=== PATIENT | male | born 1960 | race Two or more races ===

== ENCOUNTER 2019-01-14 08:05 | Inpatient (IN) | payer OTHER ==
[2019-01-14] MEDS ORDERED: ACETAMINOPHEN 325 MG TAB PO ONE (08:27)
[2019-01-14] MEDS ORDERED: NS 1,000 ML IV ONE (08:28)
[2019-01-14] MEDS ORDERED: ONDANSETRON 4 MG/2 ML VIAL IVP ONE (08:36)
[2019-01-14 08:37] LABS: PLATELET COUNT 278 10^3/uL (150-400)
--- NOTE | 2019-01-14 08:40 | EDPHY ---
H & P Stated Complaint: high blood sugar, rapid heart rate, fevers, feels weak and shakey Time Seen by Provider: 01/14/19 08:26 HPI/ROS: CHIEF COMPLAINT: Fever, shortness of breath HISTORY OF PRESENT ILLNESS: 58-year-old male with diabetes presents with fever and shortness of breath. Onset of left chest pain 10 days ago, associated with intermittent fever. Gradually increasing shortness of breath. Now short of breath at rest. The left chest pain is severe, constant, 10/10 and increases with deep inspiration. No cough. Recently added insulin to DM regimen. REVIEW OF SYSTEMS: complete 10 point ROS reviewed and is negative except for the noted elements in the HPI - Personal History Current Tetanus/Diphtheria Vaccine: Unsure Current Tetanus Diphtheria and Acellular Pertussis (TDAP): Unsure - Medical/Surgical History Hx Asthma: No Hx Chronic Respiratory Disease: No Hx Diabetes: Yes Hx Cardiac Disease: No Hx Renal Disease: No Hx Cirrhosis: No Hx Alcoholism: No Hx HIV/AIDS: No Hx Splenectomy or Spleen Trauma: No - Social History Smoking Status: Never smoked Alcohol Use: Sober Drug Use: None - Physical Exam Exam: General Appearance: Alert, pleasant Eyes: Pupils equal and round, no conjunctival pallor or injection ENT, Mouth: Mucous membranes moist Neck: Normal inspection Respiratory: Tachypneic, rales left lower lung field anteriorly Cardiovascular: Regular tachycardia Gastrointestinal: Abdomen is soft and nontender Neurological: A&O, nonfocal exam Skin: Warm and dry, no rash Extremities: Nontender, no pedal edema Psychiatric: Mood and affect normal Constitutional: Initial Vital Signs Temperature (C) 38.9 C H 01/14/19 08:09 Heart Rate 106 H 01/14/19 08:09 Respiratory Rate 18 01/14/19 08:09 Blood Pressure 134/71 H 01/14/19 08:09 O2 Sat (%) 90 L 01/14/19 08:09 O2 Delivery Mode Nasal Cannula O2 (L/minute) 3 Allergies/Adverse Reactions: No Known Allergies Allergy (Verified 01/14/19 09:52) Home Medications: Medication Instructions Recorded Insulin Glargine [Lantus] 10 unit SC BID 01/14/19 Lisinopril/Hydrochlorothiazide 1 each PO DAILY 01/14/19 [Zestoretic 20-25 mg Tablet] Simvastatin [Zocor] 20 mg PO HS 01/14/19 glipiZIDE [Glucotrol] 5 mg PO BID 01/14/19 metFORMIN HCL [Glucophage 1000 mg] 1,000 mg PO BIDMEAL 01/14/19 Medical Decision Making - Diagnostics EKG Interpretation: EKG interpreted by me reveals normal sinus rhythm, rate 94, T-wave flattening in the inferior leads. Interpretation: Borderline EKG Imaging Results: CXR: LLL infiltrate Imaging: I viewed and interpreted images myself ED Course/Re-evaluation: This patient presents with fever, hypoxia and left lower chest pain. Clinical presentation consistent with pneumonia. Meets SIRS criteria. Initial lactate is normal. IV normal saline 1 L and Tylenol 650 mg orally given. Morphine 4 mg IV given for pain. Chest x-ray reveals a left lower lobe infiltrate. Blood cultures were drawn and Rocephin and Zithromax IV given. Ddimer slightly elevated, considered PE, pneumonia much more likely, consider CTA as inpt. The hospitalist service was consulted for admission. 0945: feels and looks much better after fever reduction and pain control. BP 124/76, HR 80, RR 16, O2 sat 93% on 3l NC. Differential Diagnosis: Differential diagnosis includes though it is not limited to pneumonia, pneumothorax, pulmonary embolism, aortic dissection, pericarditis, acute coronary syndrome. - Data Points Laboratory Results: Laboratory Results 01/14/19 08:20 01/14/19 08:20 Medications Given: Acetaminophen (Tylenol) 650 mg PO Q4HRS PRN PRN Reason: Pain, Mild/Fever, Can Take PO Stop: 07/13/19 09:49 Last Admin: 01/14/19 13:21 Dose: 650 mg Hydrocodone Bitart/Acetaminophen ([place] 5/325) 1 - 2 tab PO Q4HRS PRN PRN Reason: Pain, Moderate Able to Take PO Stop: 01/24/19 17:43 Last Admin: 01/15/19 19:43 Dose: 2 tab Benzonatate (Tessalon Pearles) 200 mg PO TID PRN PRN Reason: Cough, Mild Stop: 07/13/19 13:56 Last Admin: 01/15/19 13:03 Dose: 200 mg Enoxaparin Sodium (Lovenox) 40 mg SC DAILY REJI Stop: 07/14/19 08:59 Last Admin: 01/15/19 08:41 Dose: 40 mg Guaifenesin (Mucinex) 600 mg PO BID [facility] Stop: 07/13/19 20:59 Last Admin: 01/15/19 21:13 Dose: 600 mg Cefepime HCl 2 gm/ Sodium (Chloride) 100 mls @ 200 mls/hr IV Q8HRS [facility] PRN Reason: Protocol Stop: 02/14/19 13:59 Last Admin: 01/15/19 21:13 Dose: 100 mls Vancomycin/Sodium Chloride (Vancomycin 1 Gm (Premix)) 250 mls @ 250 mls/hr IV Q12H [facility] Stop: 02/14/19 13:59 Last Admin: 01/15/19 16:12 Dose: 250 mls Insulin Glargine (Lantus Syringe) 5 units SC BID [facility] Stop: 07/14/19 20:59 Last Admin: 01/15/19 21:13 Dose: 5 units Insulin Human Lispro (Humalog Lispro) 0 unit SC TIDMEAL [facility] PRN Reason: Protocol Stop: 07/13/19 17:59 Last Admin: 01/15/19 18:09 Dose: Not Given Ketorolac Tromethamine (Toradol) 30 mg IVP Q6HRS PRN PRN Reason: Pain, Breakthrough Stop: 01/19/19 17:59 Last Admin: 01/15/19 16:11 Dose: 30 mg Senna/Docusate Sodium (Senokot-S) 1 - 2 tab PO BID [facility] PRN Reason: Protocol Stop: 07/14/19 08:59 Last Admin: 01/15/19 21:13 Dose: 1 tab Discontinued Medications Acetaminophen (Tylenol) 650 mg PO EDNOW ONE Stop: 01/14/19 08:28 Last Admin: 01/14/19 08:39 Dose: 650 mg Azithromycin (Zithromax) 500 mg PO ONCE ONE Stop: 01/14/19 09:46 Last Admin: 01/14/19 09:44 Dose: 500 mg Azithromycin (Zithromax) 250 mg PO DAILY [facility] PRN Reason: Protocol Stop: 02/14/19 08:59 Last Admin: 01/15/19 08:42 Dose: 250 mg Sodium Chloride (Ns) 1,000 mls @ 0 mls/hr IV ONCE ONE; Wide Open PRN Reason: Protocol Stop: 01/14/19 08:29 Last Admin: 01/14/19 08:35 Dose: 1,000 mls Ceftriaxone Sodium/Dextrose (Rocephin 1 Gm (Premix)) 50 mls @ 100 mls/hr IV EDNOW ONE PRN Reason: Protocol Stop: 01/14/19 09:39 Last Admin: 01/14/19 09:22 Dose: 50 mls Ceftriaxone Sodium/Dextrose (Rocephin 1 Gm (Premix)) 50 mls @ 100 mls/hr IV DAILY REJI PRN Reason: Protocol Stop: 02/14/19 08:59 Last Admin: 01/15/19 09:48 Dose: 50 mls Sodium Chloride (Ns) 1,000 mls @ 75 mls/hr IV CONT REJI Stop: 01/14/19 23:34 Last Admin: 01/14/19 10:53 Dose: 1,000 mls Ketorolac Tromethamine (Toradol) 15 mg IVP Q6HRS PRN PRN Reason: Pain, Breakthrough Stop: 01/19/19 17:59 Last Admin: 01/14/19 13:48 Dose: 15 mg Morphine Sulfate (Morphine) 4 mg IVP EDNOW ONE Stop: 01/14/19 08:37 Last Admin: 01/14/19 08:40 Dose: 4 mg Ondansetron HCl (Zofran) 4 mg IVP EDNOW ONE Stop: 01/14/19 08:37 Last Admin: 01/14/19 08:40 Dose: 4 mg Potassium Chloride (Klor-Con) 20 meq PO ONCE ONE Stop: 01/14/19 14:21 Last Admin: 01/14/19 16:19 Dose: 20 meq Potassium Chloride (Klor-Con) 40 meq PO ONCE ONE Stop: 01/15/19 09:54 Last Admin: 01/15/19 12:05 Dose: 40 meq Departure - Departure Disposition: [facility] Acute Clinical Impression: Pneumonia Qualifiers: Pneumonia type: due to unspecified organism Laterality: left Lung location: lower lobe of lung Qualified Code(s): J18.1 - Lobar pneumonia, unspecified organism Condition: Fair
[2019-01-14] MEDS ORDERED: AZITHROMYCIN IV 500 MG in NS 250 ML IV ONE (09:10)
[2019-01-14] MEDS ORDERED: AZITHROMYCIN 250 MG TAB PO ONE (09:45)
[2019-01-14] MEDS ORDERED: ONDANSETRON 4 MG/2 ML VIAL IVP PRN (09:50)
[2019-01-14] MEDS ORDERED: ONDANSETRON DISINTEGRATING 4 MG TAB PO PRN (09:50)
--- NOTE | 2019-01-14 10:06 | CPEKG ---
Test Reason : OPEN Blood Pressure : / mmHG Vent. Rate : 094 BPM Atrial Rate : 094 BPM P-R Int : 200 ms QRS Dur : 095 ms QT Int : 328 ms P-R-T Axes : 055 003 007 degrees QTc Int : 411 ms Sinus rhythm Borderline prolonged IA interval Borderline T wave abnormalities Confirmed by Vero Guillen ([id number]) on 01/14/2019 10:06:01 AM Referred By: VERO GUILLEN Confirmed By:Vero Guillen
[2019-01-14] MEDS ORDERED: NS 1,000 ML IV SCH (10:15)
[2019-01-14] MEDS: ACETAMINOPHEN 325 MG TAB PO PRN (13:21)
[2019-01-14] MEDS ORDERED: KETOROLAC 15 MG/1 ML SDV IVP PRN (13:42)
[2019-01-14] MEDS ORDERED: D50W 25 GM/50 ML SYR IVP PRN (13:58)
[2019-01-14] MEDS ORDERED: POTASSIUM CL 20 MEQ TAB PO ONE (14:20)
[2019-01-14] MEDS ORDERED: IOPAMIDOL (ISOVUE 370) 100 ML BTL IV ONE (14:34)
--- NOTE | 2019-01-14 16:05 | GHP ---
[f rep st] HISTORY AND PHYSICAL DATE OF ADMISSION: 01/14/2019 CHIEF COMPLAINT: Chest pain, fevers. HISTORY OF PRESENT ILLNESS: A 58-year-old male with diabetes, hyperlipidemia and hypertension brought in by family. He is Bangladeshi speaking. His son is bedside interpreting. The patient does understand quite a bit of Nepali. Reports a productive cough for the past week, brown sputum, fevers, chills, and sweats. He presented to Urgent Care earlier this morning with severe left- sided chest pain, difficulty breathing. Complains of left-sided chest pain that is 10/10, worse with deep breath. Next, recently saw PCP, who restarted glargine twice a day. Denies ill contacts. Complaining of headache, decreased oral intake this morning. No nausea, vomiting, or diarrhea. No dysuria. REVIEW OF SYSTEMS: I completed a 10-point review of systems, negative except as noted in HPI. PAST MEDICAL HISTORY: Hyperlipidemia, hypertension, diabetes. Recent A1c 13. PAST SURGICAL HISTORY: Inguinal hernia. FAMILY HISTORY: No strokes or heart attacks. SOCIAL HISTORY: Lives in [place] with his . Works for [employer]. No alcohol , tobacco, or illicits. HOME MEDICATIONS: Lisinopril/hydrochlorothiazide 20/25 mg, metformin 1000 mg twice daily, glipizide 5 mg twice daily, Zocor 20 at bedtime, glargine 10 units subcu twice daily. ALLERGIES: None. PHYSICAL EXAMINATION: VITAL SIGNS: Temperature 38.9, heart rate in the 90s, respirations 46, 83% on 8 L nasal cannula, blood pressure 146/90. GENERAL: He is ill-appearing, diaphoretic and uncomfortable. HEENT: PERRLA. Dry mucous membranes. CV: Regular rate and rhythm. Mildly reproductive left-sided chest pain, splinting using accessory muscles. No lower extremity edema. LUNGS: Decreased breath sounds, left base; crackles, right base. ABDOMEN: Soft, nontender, nondistended. MUSCULOSKELETAL: 5/5 upper and lower extremity strength. NEURO: 2 through 12 intact. PSYCH: Alert and oriented x3. LABORATORY DATA: WBC 13, hemoglobin 12, hematocrit 37, platelets 278. Dimer is 0.74. Lactate is 1.3. Sodium 133, potassium 3.4, chloride 98, carbon dioxide 25, glucose 199, repeat 117, total bilirubin 2, AST 16, ALT 23, lipase 26, procalcitonin is 0.23. Chest x-ray is personally reviewed by me. Positive spine sign. Left lower lobe infiltrate. EKG personally reviewed. Normal sinus rhythm, first-degree heart block, LVH, T- wave inversions 5, 6. ASSESSMENT/PLAN: 1. Sepsis with elevated white count, fever, pneumonia. Treat for community- acquired pneumonia. Blood cultures pending, negative respiratory PCR. 2. Community-acquired pneumonia: Azithromycin, ceftriaxone, Tessalon Perles, guaifenesin for cough. 3. Acute hypoxemic respiratory failure: Splinting, using accessory muscles. Suspect secondary to pleuritic pain associated with pneumonia. However, given high oxygen needs and mildly elevated D-dimer, we will check a CTA. 4. Hyperlipidemia: Statin. 5. Diabetes, type 2. A1c 13. Hold orals with decreased oral intake. Sliding scale for now. We will re add glargine when eating more. 6. Hypertension: Hold hypertensive with sepsis. 7. Diet: Diabetic. 8. Deep venous thrombosis prophylaxis: Lovenox. 9. Hypovolemic hyponatremia: Secondary to decreased oral intake. Gentle intravenous fluids. 10. 11. Hypokalemia due to decreased oral intake: Replete. DISPOSITION: Inpatient admission given acute sepsis warranting IV fluids, antibiotics. /[id number]/MODL MTDRehan
[2019-01-14] MEDS: HYDROCODONE/APAP 5/325 TAB PO PRN ×3 (18:01→22:34)
[2019-01-14] MEDS: INSULIN LISPRO 100 UNIT/ML SC SCH (18:23)
[2019-01-14] MEDS: guaiFENesin 600 MG TAB.ER PO SCH (19:47)
[2019-01-14] MEDS: KETOROLAC 15 MG/1 ML SDV IVP PRN (19:47)
[2019-01-14] MEDS ORDERED: LORazepam 0.5 MG TAB PO PRN (20:28)
[2019-01-15] MEDS: KETOROLAC 15 MG/1 ML SDV IVP PRN ×3 (02:19→16:11)
[2019-01-15] MEDS: HYDROCODONE/APAP 5/325 TAB PO PRN ×3 (05:33→19:43)
[2019-01-15] MEDS: INSULIN LISPRO 100 UNIT/ML SC SCH ×3 (08:02→18:09)
[2019-01-15] MEDS ORDERED: BISACODYL 10 MG SUPP PR PRN (08:22)
[2019-01-15] MEDS ORDERED: LACTULOSE 20 GM/30 ML UDCUP PO PRN (08:22)
[2019-01-15] MEDS ORDERED: MAGNESIUM HYDROXIDE 30 ML UDCUP PO PRN (08:22)
[2019-01-15] MEDS ORDERED: POLYETHYLENE GLYCOL 3350 17 GM PKT PO PRN (08:22)
--- NOTE | 2019-01-15 08:31 | HOSPPROG ---
Hospitalist Progress Note Assessment/Plan: #CAP with parapneumonic effusion (personally-reviewed CT and no loculations) -recurrent fever this afternoon. Broaden abx, will obtain thoracentesis for diagnostic purposes. Add TB studies (been in [place] since 1995, from [facility]) -blood/sputum cultures pending #Sepsis: due to above #Acute hypoxemic resp failure: from PNA, splinting. Down to 4L -BNP minimally elevated #Pleuritic CP: due to PNA/effuision. Negative trop. Toradol, [place] helpful #DM2: not eating much, hold orals. SSI, add glargine when eating more #HTN: holding BP meds #Hypokalemia: repleted #Diet: DM #DVT ppx: Lovenox #Disp: inpatient admission for ongoing fever, IV abx and thoracentesis Subjective: pain better-controlled this morning Objective: Vital Signs Temp Pulse Resp BP Pulse Ox 36.8 C 73 16 120/68 93 01/15/19 07:53 01/15/19 07:53 01/15/19 07:53 01/15/19 07:53 01/15/19 07:53 Laboratory Results 01/15/19 05:45 01/14/19 01/15/19 01/16/19 05:59 05:59 05:59 Intake Total 1939 Balance 1939 - Time Spent With Patient Time Spent with Patient: greater than 35 minutes Time Spent with Patient: Greater than 35 minutes spent on this patients care, greater than 50% of time spent counseling, educating, and coordinating care regarding the above mentioned plan. - Physical Exam Constitutional: no apparent distress Eyes: PERRL Ears, Nose, Mouth, Throat: moist mucous membranes Cardiovascular: regular rate and rhythym, other (reproducible left chest pain), No edema Respiratory: no respiratory distress, other (decreased BS left base, right base with mild crackles) Gastrointestinal: normoactive bowel sounds Genitourinary: no bladder fullness Skin: warm ICD10 Worksheet Patient Problems: Problems Problem Status Onset Pneumonia Acute
[2019-01-15] MEDS: SENNOSIDES/DOCUSATE SODIUM TAB PO SCH ×2 (08:41→21:13)
[2019-01-15] MEDS: ENOXAPARIN 40 MG/0.4 ML SYR SC SCH (08:41)
[2019-01-15] MEDS: guaiFENesin 600 MG TAB.ER PO SCH ×2 (08:42→21:13)
[2019-01-15] MEDS ORDERED: AZITHROMYCIN 250 MG TAB PO SCH (09:00)
[2019-01-15] MEDS ORDERED: POTASSIUM CL 20 MEQ TAB PO ONE (09:53)
[2019-01-15] MEDS: BENZONATATE 100 MG CAP PO PRN (13:03)
[2019-01-15] MEDS: CEFEPIME HCL 2 GM in NS 100 ML IV SCH ×2 (14:12→21:13)
--- NOTE | 2019-01-15 14:27 | ASMTCMCOM ---
CM Note CM Note Notes: CM spoke with pt and family in the room. Pt admitted for Community Acquired Pneumonia/sepsis, blood cultures pending, and lives independently with his . PT is ordered and pending. Pt likely to d/c independently. Pt speaks Slovenian and son speaks Thai. CM to follow. D/C Plan: Likely independent Date Signed: 01/15/2019 02:26 PM Electronically Signed By:Lena Mcneil
[2019-01-15 14:34] LABS: INR 1.31 (0.83-1.16); PROTIME(PATIENT) 15.7 SEC (12.0-15.0)
--- NOTE | 2019-01-15 14:38 | PDMN ---
Medical Necessity Medical necessity: Change to inpt as of 01/15/19 @ 12:35, meets inpt criteria per MD order and M-282, Pneumonia, A-2 days, upgraded to inpt for persistent AHRF/ SOB beyond 24 hr OBS window still requiring 4-8L O2 via oxymask, fwbrile today at 100.9 and w/persistent pleuritic CP due to PNA/parapneumonic effusion. 58 y/ o w/diabetes, HTN, and HLD initially admitted w/sepsis in setting of community acquired PNA. IV ABX's, IV Toradol for pain. Anticipate>2MN for ongoing eval/ treatment of above.
[2019-01-15] MEDS ORDERED: LIDOCAINE 1% 300 MG/30 ML SDV ONE (14:54)
[2019-01-15] MEDS: VANCOMYCIN HCL/NORMAL SALINE 250 ML IV SCH (16:12)
[2019-01-15] MEDS ORDERED: INSULIN GLARGINE 100 UNITS/ML UNIT SC SCH (21:00)
[2019-01-16] MEDS: VANCOMYCIN HCL/NORMAL SALINE 250 ML IV SCH (02:06)
[2019-01-16] MEDS: ACETAMINOPHEN 325 MG TAB PO PRN (04:58)
[2019-01-16] MEDS: CEFEPIME HCL 2 GM in NS 100 ML IV SCH ×3 (05:01→23:05)
[2019-01-16 05:15] LABS: PLATELET COUNT 235 10^3/uL (150-400)
[2019-01-16] MEDS: HYDROCODONE/APAP 5/325 TAB PO PRN ×3 (08:01→23:22)
[2019-01-16] MEDS: ENOXAPARIN 40 MG/0.4 ML SYR SC SCH (08:01)
[2019-01-16] MEDS: INSULIN LISPRO 100 UNIT/ML SC SCH ×4 (08:01→21:25)
[2019-01-16] MEDS: guaiFENesin 600 MG TAB.ER PO SCH ×2 (08:02→21:25)
[2019-01-16] MEDS: SENNOSIDES/DOCUSATE SODIUM TAB PO SCH ×2 (08:02→21:25)
[2019-01-16] MEDS ORDERED: NS 1,000 ML IV SCH (08:15)
[2019-01-16] MEDS: INSULIN GLARGINE 100 UNITS/ML UNIT SC SCH ×2 (10:17→21:46)
[2019-01-16] MEDS: metFORMIN HCL 500 MG TAB PO SCH ×2 (10:17→18:17)
[2019-01-16] MEDS: glipiZIDE 5 MG TAB PO SCH ×2 (10:17→21:25)
--- NOTE | 2019-01-16 10:33 | HOSPPROG ---
Hospitalist Progress Note Assessment/Plan: #CAP with parapneumonic effusion (personally-reviewed CT and no loculations) -600cc taken off by IR 01/15, abx broadened. Cultures, AFB studies, cytology pending (from [facility], here since 1995). Add Quantiferon -appreciate Dr. Silva consult. -Stop Vanc, add Doxy for atypical, cont Cefepime -no vegetations on echo. -blood/sputum cultures pending #Sepsis: due to above #Acute hypoxemic resp failure: from PNA, splinting. Down to 3L -BNP minimally elevated #Pleuritic CP: due to PNA/effusion. Negative trop. Toradol, [place] helpful #DM2: not eating much, hold orals. SSI, add glargine when eating more #HTN: holding BP meds #Hypokalemia: repleted #Diet: DM #DVT ppx: Lovenox #Disp: inpatient admission for ongoing fever, IV abx and thoracentesis Subjective: febrile overnight. Less chest pain and breathing easier today Objective: Vital Signs Temp Pulse Resp BP Pulse Ox 36.5 C 74 18 132/74 H 94 01/16/19 07:50 01/16/19 07:50 01/16/19 07:50 01/16/19 07:50 01/16/19 07:50 Microbiology 01/15/19 12:30 - Final Sputum, Expectorated 01/15/19 16:25 Gram Stain - Final Thoracic Fluid - Aspirate Laboratory Results 01/16/19 04:46 01/16/19 04:46 01/15/19 01/16/19 01/17/19 05:59 05:59 05:59 Intake Total 1940 500 Output Total 1000 Balance 1940 -500 PT 15.7 SEC (12.0-15.0) H 01/15/19 14:05 INR 1.31 (0.83-1.16) H 01/15/19 14:05 - Time Spent With Patient Time Spent with Patient: greater than 35 minutes Time Spent with Patient: Greater than 35 minutes spent on this patients care, greater than 50% of time spent counseling, educating, and coordinating care regarding the above mentioned plan. - Physical Exam Constitutional: no apparent distress, other (appears brighter today) Eyes: PERRL Ears, Nose, Mouth, Throat: moist mucous membranes Cardiovascular: regular rate and rhythym, other (reproducible left-sided CP) Respiratory: no respiratory distress Gastrointestinal: normoactive bowel sounds, soft, non-tender abdomen Genitourinary: no bladder fullness Skin: warm Musculoskeletal: full muscle strength, other (no joint swelling/redness) Neurologic: AAOx3, CN II-XII Intact Psychiatric: interacting appropriately ICD10 Worksheet Patient Problems: Problems Problem Status Onset Pneumonia Acute
[2019-01-16] MEDS: BENZONATATE 100 MG CAP PO PRN (12:34)
--- NOTE | 2019-01-16 12:38 | ECHO ---
[email or web address] [address] Main: [phone] Echocardiography Examination Transthoracic Name: LAINA Fowler MR#: [id number] Study Date: 01/16/2019 Study Time: 09:59 AM Date of : 1960 Age: 58 year(s) Height: 167.6 cm (66 in.) Weight: 63.96 kg (141 lb.) BSA: 1.72 m2 Gender: Male Examination: Echo Contrast: Image Quality: Adequate Rhythm: Heart Rate: BP: 132 mmHg/74 mmHg Indication: Murmur, persistent fever, eval for endocarditis Procedure Staff Referring Physician: [employer] Operator: Sara Jimenez [facility] Reading Physician: Solomon Terrazas MD Requesting Provider: Indication: Murmur, persistent fever, eval for endocarditis Measurements Chambers AV/MV Label Value Normal Value Label Value Normal Value LVOTd 2.1 cm (1.9cm - 2.1cm) AV PGmax 12 mmHg LVDd, 2D 4.8 cm (4.2cm - 5.9cm) AV PGmean 7 mmHg LVDs, 2D 3 cm (2.1cm - 4cm) AV Vmax 1.75 m/s IVSd, 2D 1.3 cm (0.6cm - 1.1cm) GIANNI (VTI) 2.2 cm2 LVPWd, 2D 1.2 cm (0.6cm - 1cm) MV E Vmax 0.85 m/s LVEF, BP 66 % (55% - 70%) MV A Vmax 0.72 m/s LVEF, 2D 67 % (54% - 74%) MV E/A 1.18 LVOT PGmean 4 mmHg MV E/E' lateral 9.6 LVOT Vmean 0.91 m/s MV E/E' septal 9.4 (0.5 - 1.7) RVDd, 2D 3.2 cm (1.9cm - 3.8cm) MV DT 197 ms LA Volume, BP 50 ml (18ml - 58ml) MV E' septal 0.09 m/s LADs, 2D 3.8 cm (3cm - 4cm) MV PHT 0.06 s LAESV index, BP 29.1 ml/m2 MVA PHT 3.9 cm2 RA Area 15 cm2 MR Reg. Volume 37 ml Additional Vessels MR Vmax 5.49 m/s Label Value Normal Value MR VTI 170 cm AoAsc 3.6 cm MR (ERO) 0.22 cm2 AoRoot, 2D 3.6 cm (1.4cm - 2.6cm) MV E' lateral 0.09 m/s MR PISA Radius 0.7 cm MV E/E' mean 9.44 Patient: LAINA Fowler Study Date: 01/16/2019 Page 1 of 3 09:59 AM MR PISA Alias V. 38.5 cm/s MV PHT 56 ms MV E' mean 0.09 m/s TV/PV Label Value Normal Value RA Pressure 5 mmHg RVSP 37 mmHg TR Pmax 32 mmHg TR Vmax 2.84 m/s PV PGmax 4 mmHg PV Vmax, Caliper 1.03 m/s (0.6m/s - 0.9m/s) Conclusions (1) Left ventricular systolic ejection fraction was normal (65-70%) - normal wall motion - mild concentric LVH (2) Normal RV size and function (3) Normal atrial dimensions (4) Mild to moderate MR with mild MAC (5) Trileaflet aortic valve with mild AI and mild sclerosis (no stenosis) (6) Mild to moderate TR - RVSP was normal 37 mm Hg (7) Mild PI (8) Normal aorta dimensions (9) No pericardial effusion (10) If clinically indicated, would consider KENDRICK to better visualize the valve morphologies Findings No obvious evidence of endocarditis, suggest KENDRICK if clinically indicated. Left Ventricle: Left ventricle is normal in size. Normal global systolic left ventricular function. The ejection fraction, measured by Simpsons method, is 66 %. There is mild concentric left ventricular hypertrophy. There are no regional wall motion abnormalities. Cannot determine LAP and Diastolic Dysfunction Grade. Right Ventricle: Normal size right ventricle. Right ventricular systolic function is normal. Left Atrium: The left atrium is normal in size. Right Atrium: The right atrium is normal in size. Mitral Valve: Mitral valve appears structurally normal. Mild to moderate mitral regurgitation. No mitral valve stenosis. There is mild mitral annular calcification. Aortic Valve: Aortic leaflets are structurally normal. Mild aortic regurgitation is present. There is no aortic stenosis. There is aortic sclerosis present. Tricuspid Valve: Tricuspid valve leaflets are structurally normal. Mild to moderate tricuspid regurgitation. No tricuspid valve stenosis. Right Ventricular systolic pressure is measured at 37 mmHg. Pulmonary artery pressure slightly increased. Pulmonic Valve: Pulmonic leaflets are structurally normal. Mild pulmonic valve regurgitation is present. Aorta: The aortic root size in 2D measures 3.6 cm. The ascending aorta measures 3.6 cm. Patient: LAINA Fowler Study Date: 01/16/2019 Page 2 of 3 09:59 AM Aorta Measurements AoRoot, 2D is 3.6 cm. Pericardium: No pericardial effusion. Exam Details Procedure Ordered: Echo Procedure Status: Routine study Image Quality: Adequate Facility Location: Cardiac Echo 1 (No Signature Object) Patient: LAINA Fowler Study Date: 01/16/2019 Page 3 of 3 09:59 AM [id number]
--- NOTE | 2019-01-16 12:50 | PDCONSULT ---
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 Given the 2 weeks without progression to severe sepsis or septic shock suspected atypical community onset pathogen particularly Legionella or mycoplasma. Expect fevers to persist over the next 24-48 hours with the addition of doxycycline targeting these atypical pathogens. He did have a sick contact at work that is the likely source of his infection. Although less likely, he is from an endemic country for tuberculosis and has never been tested to determine if he has latent disease. Will send a QuantiFERON although this will not determine active disease if positive, his imaging is not consistent with reactivation of TB and a predominantly immunocompetent person. 1. Community onset pneumonia, left lower lobe; causing hypoxia necessitating supplemental oxygen 2. Pericardial effusion, likely secondary to atypical bacterial pathogen 3. Left lung parapneumonic effusion 4. Diabetes mellitus Plan: 1. Stop vancomycin 2. Start doxycycline 100 mg IV twice daily 3. Continue cefepime 4. Reviewed in detail potential side effects of doxycycline to include: allergy , rash, nausea, antibiotic-associated diarrhea, Clostridioides difficile colitis , photosensitivity, heart burn, pigmented rash. 5. Reviewed in detail potential side effects of beta-lactam antibiotics to include: allergy, rash, nausea, antibiotic-associated diarrhea, Clostridioides difficile colitis. 6. Add a QuantiFERON test to tomorrow's labs Basilio Silva MD Infectious Diseases Chief Complaint: Fever and cough for two weeks Requesting Provider: Dr. Elizalde Reason for Referral: Consultation was requested by Dr. Elizalde regarding antimicrobial management. HPI: 58-year-old man who presented to the hospital approximately 2 weeks after developing fevers with chills, nonproductive cough, and headaches. He notes that a co-worker that he interacts within a daily basis with sick in the week prior to the development of his symptoms. He presented to hospital because he was having increasing shortness of breath in addition to the fevers are not resolving. Since admission he overall feels improved but has persisting fevers. His cough is unchanged and remains nonproductive, but the intensity of his cough has decreased. No rash, diarrhea, or other new symptoms since admission. He notes no known family member or friend was diagnosed with tuberculosis that he is aware of while living in [facility] prior to [place] late and none since. Chronology of Present Illness: Location of symptoms: Lungs Onset of symptoms: Approximately 2 weeks prior to admission Initial signs/symptoms: Fever with chills, nonproductive cough; headache Associated signs/symptoms at onset: No rash, myalgias, or arthralgias Changes since onset: Bilateral lower thoracic chest pain predominantly with cough, unchanged cough, headaches have resolved; overall feels better Exacerbating factors: None identified Relieving factors: Antibiotic therapy Antibiotics since symptom onset: Ceftriaxone, azithromycin, vancomycin, cefepime Change in symptoms with antibiotics: Overall improved but with fevers persisting Relevant social history: From [facility] in does travel back periodically to see family; most recent return to [facility] in 2016 Relevant PMHx/PSHx: Diabetes mellitus which places him at higher than average risk for reactivation of latent tuberculosis Reviewed patient medical records in [facility], and [facility] ([facility]). Travel history: Originally from [facility], moved to the [facility] in the late , periodically returns to visit family in [facility] with most recent visit in 2016 for 2 and half months Past Medical History: Diabetes mellitus, hypertension Past Surgical History: No thoracic surgeries in the past Social History: Does not use tobacco products; Does not consume marijuana products; Drinks alcohol socially; Does not use any other drugs currently or in the past Family History: No family members with recurrent infections Allergies: NKDA Medications: Reviewed in medical record and confirmed with patient. ROS: 10 organ systems reviewed; pertinent positives and negatives listed in the HPI, all other organ systems negative. Physical Exam: VS: Reviewed Gen: No acute distress; Breathing comfortably with supplemental oxygen; Able to speak in complete sentences Eyes: No conjunctival injection; No scleral icterus HENT: No gross deformities Neck: No limitation in range of motion Pulm: Audible inspiratory sounds to the base on the right; diminished inspiratory sounds at the left base; No wheeze, rhonchi, or rales CV: Normal S1 and S2; Regular rate and rhythm; No murmurs, rubs, or gallops; No lower extremity edema Abd: Not distended; Normo-active bowel sounds; Soft; Non-tender Skin: A full skin exam including exposed bilateral upper extremities, bilateral lower extremities to the knees, face, neck, abdomen, chest, and back performed; Skin intact, warm, with no rash MSK: Joints without erythema or edema; No gross limitation in range of motion Ext: No clubbing or cyanosis Neuro: Awake and alert Psych: Normal mood and affect Labs/Imaging: All microbiology testing (culture and non-culture) reviewed in the medical record. Personally reviewed and interpreted the images of the following radiographs: Chest CT showing pericardial effusion, interstitial infiltrates in the left lower lobe, no dense consolidations Medications Generic Name Dose Route Start Last Admin Trade Name Freq PRN Reason Stop Dose Admin Cefepime HCl 2 gm/ Sodium 100 mls @ 200 mls/hr 01/15/19 14:00 01/16/19 05:01 Chloride IV 02/14/19 13:59 100 mls Q8HRS REJ[facility] Protocol Doxycycline Hyclate 100 mg/ 260 mls @ 260 mls/hr 01/16/19 10:30 Sodium Chloride IV 02/15/19 10:29 Q12HRS REJI Protocol Discontinued Medications Generic Name Dose Route Start Last Admin Trade Name Freq PRN Reason Stop Dose Admin Azithromycin 250 mg 01/15/19 09:00 01/15/19 08:42 Zithromax PO 02/14/19 08:59 250 mg DAILY REJI Protocol Ceftriaxone Sodium/Dextrose 50 mls @ 100 mls/hr 01/15/19 09:00 01/15/19 09:48 Rocephin 1 Gm (Premix) IV 02/14/19 08:59 50 mls DAILY REJI Protocol Vancomycin/Sodium Chloride 250 mls @ 250 mls/hr 01/15/19 14:00 01/16/19 02:06 Vancomycin 1 Gm (Premix) IV 02/14/19 13:59 250 mls Q12H [facility] Microbiology 01/15/19 16:25 Thoracic Fluid - Aspirate Gram Stain - Final 01/15/19 12:30 Sputum, Expectorated - Final 01/14/19 08:50 Nasal, Sinus - Swab Respiratory Panel (PCR) - Final No Organism Detected By Pcr 01/15/19 16:25 Thoracic Fluid - Aspirate Fungal Culture - Preliminary 01/15/19 12:30 Sputum, Expectorated Sputum Culture - Preliminary 01/14/19 08:30 Blood Blood Culture - Preliminary 01/14/19 08:20 Blood Blood Culture - Preliminary Laboratory Tests 01/14/19 01/15/19 01/15/19 08:20 05:45 09:50 WBC 13.82 H 14.26 H Hgb 12.7 L 10.8 L Plt Count 278 236 INR Creatinine Conjugated Bilirubin 0.5 Unconjugated Bilirubin 1.1 AST 19 ALT 27 Urine Legionella Ag Ur Strep pneumoniae Ag 01/15/19 01/15/19 01/16/19 14:05 18:00 04:46 WBC 12.83 H Hgb 10.3 L Plt Count 235 INR 1.31 H Creatinine Conjugated Bilirubin Unconjugated Bilirubin AST ALT Urine Legionella Ag Pending Ur Strep pneumoniae Ag Pending 01/16/19 04:46 WBC Hgb Plt Count INR Creatinine 0.6 L Conjugated Bilirubin Unconjugated Bilirubin AST ALT Urine Legionella Ag Ur Strep pneumoniae Ag Ongoing monitoring for antimicrobial toxicity with: CBC, BMP. [id number] time with patient: 68 minutes with >50% of [id number] time spent in counseling, patient education, and coordinating care. Counseling provided included the microbiology of community onset pneumonia including typical and atypical pathogens, risk for tuberculosis in a person from an endemic country, testing for tuberculosis including limitations, expected time to resolution, natural history without treatment, and side effects of treatment.
[2019-01-16] MEDS: KETOROLAC 15 MG/1 ML SDV IVP PRN (13:47)
[2019-01-16] MEDS: DOXYCYCLINE INJ 100 MG in NS 250 ML IV SCH ×2 (13:48→21:20)
[2019-01-16] MEDS: ATORVASTATIN CALCIUM 10 MG TAB PO SCH (21:25)
[2019-01-17] MEDS: ACETAMINOPHEN 325 MG TAB PO PRN ×2 (04:28→12:12)
[2019-01-17] MEDS: CEFEPIME HCL 2 GM in NS 100 ML IV SCH ×3 (06:22→21:49)
[2019-01-17] MEDS: INSULIN LISPRO 100 UNIT/ML SC SCH ×4 (07:49→21:37)
[2019-01-17] MEDS: ENOXAPARIN 40 MG/0.4 ML SYR SC SCH (08:30)
[2019-01-17] MEDS: metFORMIN HCL 500 MG TAB PO SCH ×2 (08:32→18:01)
[2019-01-17] MEDS: glipiZIDE 5 MG TAB PO SCH ×2 (08:34→21:38)
[2019-01-17] MEDS: guaiFENesin 600 MG TAB.ER PO SCH ×2 (08:34→21:38)
[2019-01-17] MEDS: SENNOSIDES/DOCUSATE SODIUM TAB PO SCH ×2 (08:35→21:38)
[2019-01-17] MEDS: DOXYCYCLINE INJ 100 MG in NS 250 ML IV SCH ×2 (08:36→21:40)
[2019-01-17] MEDS: INSULIN GLARGINE 100 UNITS/ML UNIT SC SCH ×2 (09:00→21:36)
[2019-01-17] MEDS: HYDROCODONE/APAP 5/325 TAB PO PRN ×2 (09:02→21:38)
--- NOTE | 2019-01-17 10:50 | PCMIDPN ---
Assessment/Plan: Assessment: 58-year-old man with community onset pneumonia manifesting with ongoing high temperature spikes without a tachycardic response, acute non blood loss anemia, normal LFTs, normal platelet count, pericardial effusion, parapneumonic pleural effusion, and hyponatremia. His overall syndrome is consistent with an atypical pneumonia pathogen most likely Legionella or mycoplasma. This could represent reactivation of tuberculosis is he is from [facility] with frequent travel back to his home country, in no previous testing for latent tuberculosis. His risk factors for reactivation of TB are age and the presence of diabetes. Due to his ongoing fevers pulmonary disease and overall risk we will put him into airborne isolation and test for tuberculosis. 1. Community onset pneumonia, LLL 2. Hypoxia secondary to #1 requiring supplemental oxygen 3. Acute anemia without blood loss 4. Diabetes mellitus 5. Hyponatremia 6. Left-sided parapneumonic effusion 7. Pericardial effusion Plan: 1. Continue doxycycline 100mg IV BID 2. Continue cefepime 3. Airborne isolation for TB evaluation 4. Induced sputum for TB PCR testing 5. Added HIV testing to labs 6. Quantiferon test pending 7. Added LDH and haptoglobin to tomorrow's labs 8. Repeat LFTs with tomorrow's labs 9. Added ADA testing to pleural fluid sample 10. CBC with differential with tomorrow's labs Basilio Silva MD Infectious Diseases 01/17/19 10:51 Subjective: Ongoing fevers overnight with a temperature spike associated with diaphoresis, chills and generally feeling poorly. No new rashes, arthralgias, myalgias, or diarrhea. Cough is unchanged and remains on productive. No new symptoms otherwise. Objective: Vital Signs Temp Pulse Resp BP Pulse Ox 37.3 C 93 18 136/77 H 91 L 01/17/19 07:26 01/17/19 09:24 01/17/19 09:24 01/17/19 07:26 01/17/19 09:24 Microbiology 01/15/19 12:30 - Final Sputum, Expectorated 01/15/19 16:25 Mycobacterial Smear (DELMIS) - Final Thoracic Fluid - Aspirate 01/15/19 16:25 Gram Stain - Final Thoracic Fluid - Aspirate Laboratory Results 01/17/19 05:15 01/17/19 05:15 01/16/19 01/17/19 01/18/19 05:59 05:59 05:59 Intake Total 500 Output Total 1000 Balance -500 Medications Generic Name Dose Route Start Last Admin Trade Name Freq PRN Reason Stop Dose Admin Doxycycline Hyclate 100 mg/ 260 mls @ 260 mls/hr 01/16/19 10:30 01/17/19 08: 36 Sodium Chloride IV 02/15/19 10:29 260 mls Q12HRS REJI Protocol Cefepime HCl 2 gm/ Sodium 100 mls @ 200 mls/hr 01/15/19 14:00 01/17/19 06:22 Chloride IV 02/14/19 13:59 100 mls Q8HRS [facility] Protocol Discontinued Medications Generic Name Dose Route Start Last Admin Trade Name Freq PRN Reason Stop Dose Admin Azithromycin 500 mg 01/14/19 09:45 01/14/19 09:44 Zithromax PO 01/14/19 09:46 500 mg ONCE ONE Azithromycin 250 mg 01/15/19 09:00 01/15/19 08:42 Zithromax PO 02/14/19 08:59 250 mg DAILY [facility] Protocol Ceftriaxone Sodium/Dextrose 50 mls @ 100 mls/hr 01/14/19 09:10 01/14/19 09:22 Rocephin 1 Gm (Premix) IV 01/14/19 09:39 50 mls EDNOW ONE Protocol Ceftriaxone Sodium/Dextrose 50 mls @ 100 mls/hr 01/15/19 09:00 01/15/19 09:48 Rocephin 1 Gm (Premix) IV 02/14/19 08:59 50 mls DAILY [facility] Protocol Vancomycin/Sodium Chloride 250 mls @ 250 mls/hr 01/15/19 14:00 01/16/19 02:06 Vancomycin 1 Gm (Premix) IV 02/14/19 13:59 250 mls Q12H [facility] Microbiology 01/15/19 16:25 Thoracic Fluid - Aspirate Mycobacterial Smear (DELMIS) - Final 01/15/19 16:25 Thoracic Fluid - Aspirate Gram Stain - Final 01/15/19 12:30 Sputum, Expectorated - Final 01/14/19 08:50 Nasal, Sinus - Swab Respiratory Panel (PCR) - Final No Organism Detected By Pcr 01/15/19 16:25 Thoracic Fluid - Aspirate Fungal Culture - Preliminary 01/15/19 16:25 Thoracic Fluid - Aspirate Anaerobic Culture - Preliminary 01/15/19 12:30 Sputum, Expectorated Sputum Culture - Preliminary 01/14/19 08:30 Blood Blood Culture - Preliminary 01/14/19 08:20 Blood Blood Culture - Preliminary Laboratory Tests 01/14/19 01/15/19 01/15/19 08:20 09:50 18:00 WBC 13.82 H Hgb 12.7 L Plt Count 278 Absolute Neuts (auto) 11.38 H Absolute Lymphs (auto) 0.95 L Absolute Eos (auto) 0.00 L Creatinine Total Bilirubin 1.6 H AST 19 ALT 27 Total Protein 5.4 L Albumin 2.7 L Urine Legionella Ag Pending Ur Strep pneumoniae Ag Negative TB Blood Test (T-Spot) 01/16/19 01/17/19 01/17/19 04:46 05:15 05:15 WBC 11.98 H Hgb 9.9 L Plt Count 247 Absolute Neuts (auto) 10.74 H Absolute Lymphs (auto) 0.82 L Absolute Eos (auto) 0.06 Creatinine Total Bilirubin AST ALT Total Protein Albumin Urine Legionella Ag Ur Strep pneumoniae Ag TB Blood Test (T-Spot) Pending 01/17/19 05:15 WBC Hgb Plt Count Absolute Neuts (auto) Absolute Lymphs (auto) Absolute Eos (auto) Creatinine 0.6 L Total Bilirubin AST ALT Total Protein Albumin Urine Legionella Ag Ur Strep pneumoniae Ag TB Blood Test (T-Spot) - Physical Exam General Appearance: no apparent distress, non-toxic EENT: No scleral icterus Respiratory: No respiratory distress, No accessory muscle use, No wheezing Neck: full range of motion, supple Cardiac/Chest: No tachycardia Extremities: No erythema Abdomen: non-tender, soft, No distended, No guarding Skin: No jaundice, No erythema Neuro/Psych: alert, normal mood/affect, oriented x 3, No confused - Time Spent With Patient Time Spent with Patient: greater than 35 minutes (Discussed feasibility of tuberculosis in a person from a high incidence country, testing for tuberculosis , isolation precautions, treatment if tuberculosis were to be positive, likelihood that this would be more common pathogen like Legionella or mycoplasma ) Time Spent with Patient: Greater than 35 minutes spent on this patients care, greater than 50% of time spent counseling, educating, and coordinating care regarding the above mentioned plan. ICD10 Worksheet Patient Problems: Problems Problem Status Onset Pneumonia Acute
[2019-01-17] MEDS ORDERED: POTASSIUM CL 20 MEQ TAB PO ONE ×2 (12:39→17:00)
--- NOTE | 2019-01-17 16:28 | ASMTCMCOM ---
CM Note CM Note Notes: Spoke w/pt's son William regarding FMLA paperwork. I have notified MD but it is not yet signed. Pt still with high fevers, being worked up for possible TB. He was otherwise cleared by PT for home. DC Plan: TBD Date Signed: 01/17/2019 04:27 PM Electronically Signed By:Lee Ann Luz RN
[2019-01-17] MEDS: IBUPROFEN 600 MG TAB PO PRN (16:51)
--- NOTE | 2019-01-17 18:07 | HOSPPROG ---
Hospitalist Progress Note Assessment/Plan: #CAP/left parapneumonic effusion (personally-reviewed CT and no loculations) -thoracentesis 01/15. IV Doxy and Cefepime -still febrile so lab testing for latent TB, HIV -no vegetations on echo. Negative Strep Ag. Negative cytology -blood/sputum cultures pending #Sepsis: due to above #Acute hypoxemic resp failure: improved after thora -BNP minimally elevated. Normal LVEF, mild MR/TR #Pleuritic CP: due to PNA/effusion. Negative trop. PRN Advil #DM2: not eating much, hold orals. SSI, add glargine when eating more #HTN: holding BP meds #Hypokalemia: repleted #Hyponatremia: mild. Encourage PO intake #Diet: DM #DVT ppx: Lovenox #Disp: inpatient admission for ongoing fever, IV abx and thoracentesis Subjective: less chest pain Objective: Vital Signs Temp Pulse Resp BP Pulse Ox 39.3 C H 92 36 H 149/88 H 90 L 01/17/19 16:00 01/17/19 16:00 01/17/19 16:00 01/17/19 16:00 01/17/19 16:00 Microbiology 01/17/19 09:36 - Final Sputum, Induced/Suctioned 01/15/19 16:25 Gram Stain - Final Thoracic Fluid - Aspirate 01/15/19 12:30 - Final Sputum, Expectorated 01/15/19 16:25 Mycobacterial Smear (DELMIS) - Final Thoracic Fluid - Aspirate Laboratory Results 01/17/19 05:15 01/17/19 05:15 01/16/19 01/17/19 01/18/19 05:59 05:59 05:59 Intake Total 500 Output Total 1000 Balance -500 PT 15.7 SEC (12.0-15.0) H 01/15/19 14:05 INR 1.31 (0.83-1.16) H 01/15/19 14:05 - Time Spent With Patient Time Spent with Patient: greater than 35 minutes Time Spent with Patient: Greater than 35 minutes spent on this patients care, greater than 50% of time spent counseling, educating, and coordinating care regarding the above mentioned plan. - Physical Exam Constitutional: no apparent distress Eyes: PERRL Ears, Nose, Mouth, Throat: moist mucous membranes Cardiovascular: regular rate and rhythym Respiratory: other (crackles right base) Gastrointestinal: normoactive bowel sounds Genitourinary: no bladder fullness Skin: warm, No induration, No rash Musculoskeletal: full muscle strength, other (no reproducible CP ) Neurologic: AAOx3, CN II-XII Intact Psychiatric: interacting appropriately ICD10 Worksheet Patient Problems: Problems Problem Status Onset Pneumonia Acute
[2019-01-17] MEDS: ATORVASTATIN CALCIUM 10 MG TAB PO SCH (21:38)
[2019-01-17] MEDS: FAMOTIDINE 20 MG TAB PO SCH (21:38)
[2019-01-18] MEDS: BENZONATATE 100 MG CAP PO PRN ×2 (02:45→16:36)
[2019-01-18] MEDS: IBUPROFEN 600 MG TAB PO PRN ×2 (05:10→12:36)
[2019-01-18] MEDS: CEFEPIME HCL 2 GM in NS 100 ML IV SCH (05:11)
[2019-01-18 05:17] LABS: PLATELET COUNT 305 10^3/uL (150-400)
[2019-01-18] MEDS: INSULIN LISPRO 100 UNIT/ML SC SCH ×4 (07:50→21:48)
[2019-01-18] MEDS: DOXYCYCLINE INJ 100 MG in NS 250 ML IV SCH (08:31)
[2019-01-18] MEDS: metFORMIN HCL 500 MG TAB PO SCH ×2 (10:04→17:02)
[2019-01-18] MEDS: SENNOSIDES/DOCUSATE SODIUM TAB PO SCH ×2 (10:04→21:48)
[2019-01-18] MEDS: INSULIN GLARGINE 100 UNITS/ML UNIT SC SCH ×2 (10:05→21:48)
[2019-01-18] MEDS: guaiFENesin 600 MG TAB.ER PO SCH ×2 (10:05→21:46)
[2019-01-18] MEDS: ENOXAPARIN 40 MG/0.4 ML SYR SC SCH (10:05)
[2019-01-18] MEDS: FAMOTIDINE 20 MG TAB PO SCH ×2 (10:05→21:46)
[2019-01-18] MEDS: glipiZIDE 5 MG TAB PO SCH ×2 (10:05→21:46)
--- NOTE | 2019-01-18 10:46 | PCMIDPN ---
Assessment/Plan: 1. 58-year-old [place] male with poorly controlled diabetes, admitted with several weeks of feeling poorly with sweats, headaches, and left-sided chest pain associated with mild cough, occasionally productive of nonbloody phlegm: Reviewed patient's CT scan from 4 days ago. Parenchymal involvement is underwhelming; predominant finding is left pleural effusion that was tapped and is exudative in nature with a neutrophilic predominance. Cytology without malignant cells. He has not responded to 5 days of antibiotics for typical bacterial pathogens, and continues to spike fevers and feel unwell. His main complaint is ongoing left-sided chest discomfort that radiates to his abdomen. Hypoxia and cough are minimal. At this point in time, we must consider tuberculosis until proven otherwise. This can be a difficult diagnosis to make with reactivation disease. He may need a pleural biopsy moving forward to facilitate diagnosis with histopathology. He has only lived in [place], [place] , and briefly in [place]. He does not have a hot tub, and no other unusual exposures. He does not own birds or animals. Last travel to [place] 2015, and he was there for several months at a time (he travels there every 3-4 years) As such, endemic fungal infections in [place] such as histoplasmosis must be considered as well. Meliodosis should also be considered, but would have expected him to respond to cefepime and doxycycline. Clinical presentation is not consistent with non infectious etiologies such as GPA, and malignancy seems less likely although is still plausible. * Will repeat CT scans of the chest, abdomen and pelvis today. Have asked patient to make sure he takes a deep breath, as his CTs and chest x-rays have had poor inspiration * Called microbiology lab: TB PCR will be done this morning. If negative, patient can be removed from isolation (there are excellent data showing that with 1-TB PCR, patients can be safely removed from isolation) * Will order blood culture for AFB. AFB on expectorated sputum and pleural fluid pending. * Urine histoplasmosis antigen pending. Have also added serum cryptococcal antigen, although this disease seems less likely * T spot pending; will not plant PPD in the setting of prior BCG vaccine. * HIV antigen antibody test pending * Will review radiographic tests today and ask Pulmonary to see the patient as well. Depending on radiographic findings, may pursue bronchoscopy for further diagnostic testing. (AFB, fungal, [facility] testing, Legionella culture) Also may need pleural biopsy as outlined above. * Given clinical stability and lack of response to antibiotics after 5 days with ongoing high fevers, will stop antibiotics and pursue diagnostic testing as outlined above. If clinically worsens, will resume antibiotics. Over 60 min was spent with this patient today. 01/18/19 10:52 Subjective: Long conversation with patient, his son, it and some contribution from patient' s today as well. He began feeling unwell perhaps 1 and half months ago, and it started with some sweating, and malaise. No weight loss, but patient's son reports that he has had drenching night sweats. Appetite is poor. Soon thereafter, developed some left-sided chest discomfort, and a cough. The cough is minimal now. He is off oxygen, and feels that he is getting enough air to breathe. No hot tub exposure. He does not own animals or birds. He travels to [place] every 3-4 years, and days there several months at a time. He stays in a city of about 4000 people [place] outside of [facility]. [place] He has had no known tuberculosis exposures that he is aware of. He has a mild headache presently, but no visual disturbance, confusion, diarrhea or changes in his bowel movements. No skin lesions or joint pain. His main complaint is ongoing left-sided chest discomfort, that he states radiates to his lower abdomen. Objective: Cefepime 2 g IV q.8 hours day 3 Doxycycline 100 mg IV q.12 hours day 2 (antibiotics day 5) T-max 38.9 degrees Vital Signs Temp Pulse Resp BP Pulse Ox 36.7 C 78 16 139/83 H 92 01/18/19 07:36 01/18/19 07:36 01/18/19 07:36 01/18/19 07:36 01/18/19 07:36 Microbiology 01/17/19 09:36 - Final Sputum, Induced/Suctioned 01/15/19 16:25 Gram Stain - Final Thoracic Fluid - Aspirate 01/15/19 12:30 - Final Sputum, Expectorated Laboratory Results 01/18/19 04:22 01/18/19 04:22 01/17/19 01/18/19 01/19/19 05:59 05:59 05:59 Intake Total 1000 Output Total 1700 Balance -700 ESR 108 MM/HR (0-20) H 01/17/19 05:13 C-Reactive Protein 235.9 mg/L (<10.0) H 01/17/19 05:13 Blood cultures January 14 no growth January 15 sputum with oral bruna January 15 pleural fluid 4+ PMNs, culture pending, AFB stain negative, culture pending, fungal culture pending January 17 sputum AFB pending, culture pending HIV antibody/antigen pending, urine histoplasmosis antigen pending, Legionella urine antigen pending. CRP markedly positive at 235 TB PCR on sputum pending - Physical Exam General Appearance: alert, no apparent distress, other (Did not cough once during my exam) EENT: normal ENT inspection Respiratory: crackles, other (Crackles left lung base, up to mid lung field. No rub.) Cardiac/Chest: regular rate, rhythm, No systolic murmur, No friction rub Extremities: No pedal edema Abdomen: non-tender, soft Skin: No rash, No embolic lesions Neuro/Psych: oriented x 3 ICD10 Worksheet Patient Problems: Problems Problem Status Onset Pneumonia Acute
[2019-01-18] MEDS ORDERED: IOPAMIDOL (ISOVUE-300) 100 ML BTL ONE (13:12)
--- NOTE | 2019-01-18 14:07 | HOSPPROG ---
Hospitalist Progress Note Assessment/Plan: #CAP/left parapneumonic effusion (personally-reviewed CT and no loculations) -thoracentesis 01/15. -still febrile so lab testing for TB, histoplasmosis pending -CT chest, abd/pelvis today -no vegetations on echo. Negative Strep Ag. Negative cytology -5 days abx, will stop and pursue as above -Pulmonology to evaluate -If TB PCR negative, can take off isolation #Sepsis: due to above #Acute hypoxemic resp failure: improved after thora -BNP minimally elevated. Normal LVEF, mild MR/TR #Pleuritic CP: due to PNA/effusion. Negative trop. PRN Advil #DM2: not eating much, hold orals. SSI, add glargine when eating more #HTN: holding BP meds #Hypokalemia: repleted #Hyponatremia: mild. Encourage PO intake #Diet: DM #DVT ppx: Lovenox #Disp: inpatient admission Subjective: chilled with fever this afternoon Objective: Vital Signs Temp Pulse Resp BP Pulse Ox 37.1 C 78 18 124/74 H 95 01/18/19 11:25 01/18/19 11:25 01/18/19 11:25 01/18/19 11:25 01/18/19 11:25 Microbiology 01/17/19 08:50 Mycobacterium tuberculosis DNA (PCR - Final Sputum, Induced/Suctioned Pcr Negative For M. Tb Complex 01/15/19 16:25 Gram Stain - Final Thoracic Fluid - Aspirate 01/15/19 12:30 - Final Sputum, Expectorated Sputum Culture - Final 01/17/19 09:36 - Final Sputum, Induced/Suctioned Laboratory Results 01/18/19 04:22 01/18/19 04:22 01/17/19 01/18/19 01/19/19 05:59 05:59 05:59 Intake Total 1000 Output Total 1700 Balance -700 PT 15.7 SEC (12.0-15.0) H 01/15/19 14:05 INR 1.31 (0.83-1.16) H 01/15/19 14:05 - Time Spent With Patient Time Spent with Patient: greater than 35 minutes Time Spent with Patient: Greater than 35 minutes spent on this patients care, greater than 50% of time spent counseling, educating, and coordinating care regarding the above mentioned plan. - Physical Exam Constitutional: no apparent distress, other (diaphoretic) Eyes: PERRL Ears, Nose, Mouth, Throat: moist mucous membranes Cardiovascular: regular rate and rhythym Respiratory: inspiratory crackles (left base) Gastrointestinal: normoactive bowel sounds Genitourinary: no bladder fullness Skin: warm, No rash Musculoskeletal: full muscle strength Neurologic: AAOx3 Psychiatric: interacting appropriately ICD10 Worksheet Patient Problems: Problems Problem Status Onset Pneumonia Acute
--- NOTE | 2019-01-18 14:46 | ASMTCMCOM ---
CM Note CM Note Notes: Spoke w/pt's son regarding FMLA paperwork. spoke with son who will keep paperwork for now until a clearer picture of pt's needs are known. DC date still uncertain, PT had previously cleared pt for home, CM w/f but pt will likely be independent. DC Plan: Independent w/assist from son Date Signed: 01/18/2019 02:45 PM Electronically Signed By:Lee Ann Luz RN
[2019-01-18] MEDS: HYDROCODONE/APAP 5/325 TAB PO PRN (16:35)
[2019-01-18] MEDS: ATORVASTATIN CALCIUM 10 MG TAB PO SCH (21:46)
[2019-01-19] MEDS: BENZONATATE 100 MG CAP PO PRN ×2 (01:33→19:36)
[2019-01-19] MEDS: ACETAMINOPHEN 325 MG TAB PO PRN (01:33)
[2019-01-19] MEDS: metFORMIN HCL 500 MG TAB PO SCH ×2 (07:42→16:34)
[2019-01-19] MEDS: SENNOSIDES/DOCUSATE SODIUM TAB PO SCH (09:10)
[2019-01-19] MEDS: ENOXAPARIN 40 MG/0.4 ML SYR SC SCH ×2 (09:10→11:34)
[2019-01-19] MEDS: guaiFENesin 600 MG TAB.ER PO SCH ×2 (09:21→20:09)
[2019-01-19] MEDS: HYDROCODONE/APAP 5/325 TAB PO PRN ×2 (09:21→16:10)
[2019-01-19] MEDS: FAMOTIDINE 20 MG TAB PO SCH (09:22)
[2019-01-19] MEDS: INSULIN LISPRO 100 UNIT/ML SC SCH ×4 (09:24→21:27)
[2019-01-19] MEDS: glipiZIDE 5 MG TAB PO SCH ×3 (09:25→20:09)
[2019-01-19] MEDS: INSULIN GLARGINE 100 UNITS/ML UNIT SC SCH ×4 (09:25→21:27)
--- NOTE | 2019-01-19 09:35 | PCMIDPN ---
Assessment/Plan: 1. 58-year-old [place] male with poorly controlled diabetes, admitted with several weeks of feeling poorly with sweats, headaches, and left-sided exudative pleural effusion with minimal lung involvement: Chest CT reviewed today with Dr. Perales. The patient has reaccumulated the left pleural effusion, which is now looking more organized/empyema-like. Lung parenchymal involvement is minimal, with some patchy involvement of the right upper lobe. Although a pleural effusion due to tuberculosis is typically lymphocytic in nature, approximately 20-40% of the time it can be neutrophilic. This patient needs a VATS for diagnosis, including pleural biopsy and culture as I will outline below. This was all explained to the patient in detail today. Differential diagnosis includes tuberculosis, bacterial empyema, fungal infection such as histoplasmosis, or malignancy. An autoimmune or vasculitic etiology seems highly unlikely. * Spoke with Dr. Alvarado. Asked me to make patient NPO. He is likely not able to do the case until later this afternoon, this evening, or tomorrow. * Orders placed on VATS for pleural biopsy AFB stain and culture and histopathology. * Orders placed on pleural fluid for AFB stain culture, fungal stain and culture , Gram stain and anaerobic culture, and cytology. Have also asked them to send pleural fluid for TB PCR which can be done in house, and spoke with microbiology lab about this. * Have also ordered cell count, protein, glucose, pH, etc on VATS fluid * Spoke with Dr. Agapito Rajan, the on-call pathologist so that he is aware we are looking for TB on pleural biopsy as well as fungal etiology, etc. * He will remain off antibiotics for now given clinical stability and need for diagnosis. Over an hour spent with this patient today, coordinating care, speaking with family members, etc. Subjective: Reviewed CT scans. CT scan of the abdomen and pelvis is completely normal. CT of the chest shows robust reaccumulation of pleural fluid on the left side. He also has some patchy parenchymal involvement of the right upper lobe that is minimal. Some calcified granulomas also seen. Patient continues to spike fevers up to 39. Minimal dry cough. He has pain when he takes a deep breath on the left side. Had 5 episodes of diarrhea yesterday that is being attributed to oral contrast. No abdominal pain. Long conversation with patient , son, and patient's today regarding the plan as outlined below. Objective: No antibiotics T-max 39.1 degrees Vital Signs Temp Pulse Resp BP Pulse Ox 37.6 C 87 20 130/88 H 92 01/19/19 07:48 01/19/19 07:48 01/19/19 07:48 01/19/19 07:48 01/19/19 07:48 Microbiology 01/17/19 09:36 - Final Sputum, Induced/Suctioned 01/18/19 13:30 Mycobacterial Smear (DELMIS) - Final Blood 01/17/19 08:50 Mycobacterial Smear (DELMIS) - Final Sputum, Induced/Suctioned Mycobacterium tuberculosis DNA (PCR - Final Pcr Negative For M. Tb Complex 01/15/19 16:25 Gram Stain - Final Thoracic Fluid - Aspirate 01/15/19 12:30 - Final Sputum, Expectorated Sputum Culture - Final Laboratory Results 01/18/19 04:22 01/18/19 04:22 01/18/19 01/19/19 01/20/19 05:59 05:59 05:59 Intake Total 1000 Output Total 1700 Balance -700 ESR 108 MM/HR (0-20) H 01/17/19 05:13 C-Reactive Protein 235.9 mg/L (<10.0) H 01/17/19 05:13 No new microbiology compared with yesterday - Physical Exam General Appearance: alert, no apparent distress EENT: pharynx normal, other (Dentition in fair repair.), No thrush Respiratory: crackles, other (Diminished breath sounds and crackles left base) Cardiac/Chest: regular rate, rhythm Abdomen: non-tender, soft Skin: No rash, No embolic lesions ICD10 Worksheet Patient Problems: Problems Problem Status Onset Pneumonia Acute
[2019-01-19] MEDS: IBUPROFEN 600 MG TAB PO PRN ×2 (11:35→19:36)
--- NOTE | 2019-01-19 13:37 | GCON ---
[f rep st] CONSULTATION CHIEF COMPLAINT: Chest pain, fever. HISTORY OF PRESENT ILLNESS: This is a 58-year-old male with a history of type 2 diabetes, hypertensi on, and hyperlipidemia who was brought in by family for a 2-week history of chest pain and fevers. H e reports that for 1-1/2 months, he has had night sweats, and in the last few weeks he has developed cough productive of brown sputum, fevers, diaphoresis and has felt weak. Of note, the [place] is [facility] [place] Surgery consulted for VATS procedure to drain loculated left pl eural effusion in addition to small wedge biopsy of lung for diagnostic purposes. PAST MEDICAL HISTORY: Hypertension, hyperlipidemia, type 2 diabetes. PAST SURGICAL HISTORY: Hernia repair at [facility] 2008 without complications. FAMILY HISTORY: Negative for heart disease, heart attack, stroke, seizure, bleeding or clotting diso rders. Otherwise noncontributory. SOCIAL HISTORY: The patient moved here from [facility] in 1994, works [employer] for [employer]. He is here with his and niece today. He seems to have good understanding of [place], and he was prov ided interpreting if needed although interpretation services were offered. REVIEW OF SYSTEMS: Endorses headache 3 or more times per week which improves with ibuprofen, states this has been ongoing for several years, otherwise review of systems was negative other than stated i n HPI. ALLERGIES: No known drug allergies. PHYSICAL EXAM: GENERAL: This is a pleasant, well-nourished man, who appears slightly diaphoretic bu t in no acute distress on nasal cannula. HEENT: Normocephalic. No gross hearing deficits. Mucous membranes moist. Eyes, no scleral icterus, no injection. Pupils are equal in size. LUNGS: Little to no air movement in the left lower lung. Left lower lobe mild crackles throughout left parenchyma. Right lobe clear to auscultation. No increased work of breathing. CARDIAC: Regular rate and rhyt hm. Normal S1 and S2. No peripheral edema could be appreciated. ABDOMEN: Bowel sounds present. S oft, nondistended, nontender. No hepatosplenomegaly. SKIN: Warm, damp. PSYCH: Mood and affect no rmal. LABS: White count elevated at 14.3 on admission, is 12.3 today after antibiotics. H and H low at 10 .7 and 31.9 respectively. HIV testing was negative. Other infectious etiologies pending. IMAGING: Chest CT on 01/18/2019 showed: 1. Increase in loculated effusion in the left base posteriorly with adjacent compressive atelectatic change. 2. Small left pleural effusion has developed with persistent basilar atelectasis as well as a small amount of fluid in the left major fissure superiorly. 3. Stable small pericardial effusion. 4. Development of patchy ground-glass attenuation pneumonitis inferior aspect, right upper lobe ante rolaterally. ASSESSMENT/PLAN: This is a pleasant 58-year-old male with persistent fevers, white blood count eleva tion, and recurrent left-sided pleural effusion despite 5 days of antibiotics. Given history, sympto ms and overall clinical picture, there is high suspicion for loculated TB pleural effusion. Plan to perform left VATS procedure and small left lung wedge biopsy. Will send pleural biopsy for AFB stain and culture and histopathology; cell count, protein, glucose, pH and orders on that fluid per ID. The patient was informed of the risks of the procedure including, but not limited to infection, bleed ing, stroke, heart attack, , and need for ICD placement. He was informed that should he proceed with the procedure he would be done under general anesthesia, which has inherent risks in of itself including, but not limited to sudden cardiac . He would need a chest tube following the procedu re that would likely be in for several days up to and possibly including after discharge home. The p atient was understanding of these risks and elected to move forward with the procedure, which is sche duled for 8:00 a.m. 01/20/2019. /[id number]/MODL
--- NOTE | 2019-01-19 13:59 | ASMTCMCOM ---
CM Note CM Note Notes: Pt has a VATS procedure and L lung wedge bx planned for tomorrow. CM will continue to follow for any d/c needs. D/C plan: TBD Date Signed: 01/19/2019 01:59 PM Electronically Signed By:OVIDIO Cooper
--- NOTE | 2019-01-19 15:43 | HOSPPROG ---
Hospitalist Progress Note Assessment/Plan: * Empyema - previous thoracentesis with pH 7.0 -reaccumulating fluid, persistent fever, now loculated -surgery consulted for VATS -cultures and pleural biopsy arranged by ID -keep isolation - rule out TB * Sepsis -still with persistent fever -now watching off antibiotics per ID * Acute respiratory failure -previous resp rate 45 with 10L O2 requirement -improved * DM II - uncontrolled - last HgA1c 13 -Lantus * HTN -restart home meds * ESR 108 -suggests more prolonged disease process than just parapneumonic effusion ( ie TB) Subjective: no new complaints. Objective: Vital Signs Temp Pulse Resp BP Pulse Ox 36.7 C 69 24 H 147/82 H 96 01/19/19 15:04 01/19/19 15:04 01/19/19 15:04 01/19/19 15:04 01/19/19 15:04 Microbiology 01/15/19 16:25 Gram Stain - Final Thoracic Fluid - Aspirate 01/17/19 09:36 - Final Sputum, Induced/Suctioned 01/18/19 13:30 Mycobacterial Smear (DELMIS) - Final Blood 01/17/19 08:50 Mycobacterial Smear (DELMIS) - Final Sputum, Induced/Suctioned Mycobacterium tuberculosis DNA (PCR - Final Pcr Negative For M. Tb Complex 01/15/19 12:30 - Final Sputum, Expectorated Sputum Culture - Final Laboratory Results 01/18/19 04:22 01/18/19 04:22 01/18/19 01/19/19 01/20/19 05:59 05:59 05:59 Intake Total 1000 Output Total 1700 Balance -700 PT 15.7 SEC (12.0-15.0) H 01/15/19 14:05 INR 1.31 (0.83-1.16) H 01/15/19 14:05 d/w DR. barnett regarding OR plan CT chest/abd/pelvis - pleural effusion is now loculated - Physical Exam Constitutional: no apparent distress, appears nourished, not in pain Cardiovascular: regular rate and rhythym, no murmur, rub, or gallop Respiratory: no respiratory distress, no rales or rhonchi, clear to auscultation Gastrointestinal: normoactive bowel sounds, soft, non-tender abdomen, no palpable masses Skin: no rashes or abrasions, no fluctuance, no induration Neurologic: AAOx3, sensation intact bilaterally Psychiatric: interacting appropriately, not anxious, not encephalopathic, thought process linear ICD10 Worksheet Patient Problems: Problems Problem Status Onset Pneumonia Acute
[2019-01-19] MEDS: LISINOPRIL/HCTZ 10/12.5 MG 1 EA TAB PO SCH (17:37)
[2019-01-19] MEDS: ATORVASTATIN CALCIUM 10 MG TAB PO SCH (20:09)
[2019-01-20] MEDS: BENZONATATE 100 MG CAP PO PRN (02:21)
[2019-01-20] MEDS: HYDROCODONE/APAP 5/325 TAB PO PRN ×4 (06:31→17:23)
[2019-01-20] MEDS: glipiZIDE 5 MG TAB PO SCH ×3 (07:46→20:52)
[2019-01-20] MEDS: metFORMIN HCL 500 MG TAB PO SCH ×2 (07:46→17:24)
[2019-01-20] MEDS: INSULIN LISPRO 100 UNIT/ML SC SCH ×4 (07:46→20:53)
[2019-01-20] MEDS: INSULIN GLARGINE 100 UNITS/ML UNIT SC SCH ×4 (07:46→20:52)
[2019-01-20] MEDS: guaiFENesin 600 MG TAB.ER PO SCH ×3 (07:46→20:52)
[2019-01-20] MEDS ORDERED: NALOXONE HCL 0.4 MG/ML INJ IVP PRN (07:57)
[2019-01-20] MEDS ORDERED: oxyCODONE IR 5 MG TAB PO PRN (07:57)
[2019-01-20] MEDS ORDERED: DEXAMETHASONE 4 MG/ML VIAL IVP PRN (07:57)
[2019-01-20] MEDS ORDERED: ONDANSETRON 4 MG/2 ML VIAL IVP PRN (07:57)
[2019-01-20] MEDS ORDERED: HYDROmorphONE/DILAUDID 1 MG/ML INJ IVP PRN (07:57)
[2019-01-20] MEDS ORDERED: fentaNYL 100 MCG/2 ML INJ IVP PRN (07:57)
--- NOTE | 2019-01-20 08:00 | PDANEPAE ---
ANE History of Present Illness VATS ANE Past Medical History - Cardiovascular History Hx Hypertension: Yes Hx Arrhythmias: Yes - Pulmonary History Hx COPD: Yes Hx Oxygen in Use at Home: No Hx Sleep Apnea: No Sleep Apnea Screening Result - Last Documented: Positive - Endocrine History Hx Diabetes: Yes - Chronic Pain History Chronic Pain: No ANE Review of Systems Review of Systems: ANE Patient History - Allergies Allergies/Adverse Reactions: No Known Allergies Allergy (Verified 01/14/19 09:52) - Home Medications Home Medications: Insulin Glargine [Lantus] 10 unit SC BID 01/14/19 [Last Taken Unknown] Lisinopril/Hydrochlorothiazide [Zestoretic 20-25 mg Tablet] 1 each PO DAILY 11/03 [Last Taken Unknown] Simvastatin [Zocor] 20 mg PO HS 01/14/19 [Last Taken Unknown] glipiZIDE [Glucotrol] 5 mg PO BID 01/14/19 [Last Taken Unknown] metFORMIN HCL [Glucophage 1000 mg] 1,000 mg PO BIDMEAL 01/14/19 [Last Taken Unknown] - NPO status NPO Since - Liquids (Date): 01/20/19 NPO Since - Liquids (Time): 00:00 NPO Since - Solids (Date): 01/20/19 NPO Since - Solids (Time): 00:00 - Smoking Hx Smoking Status: Never smoked - Alcohol Use Alcohol Use: Sober ANE Labs/Vital Signs - Labs Result Diagrams: 01/18/19 04:22 01/18/19 04:22 - Vital Signs Blood Pressure: 153/91 Heart Rate: 86 Respiratory Rate: 18 O2 Sat (%): 93 Height: 167.64 cm Weight: 63.957 kg ANE Physical Exam - Airway Neck exam: FROM Mallampati Score: Class 2 Mouth exam: normal dental/mouth exam - Pulmonary Pulmonary: clear to auscultation - Cardiovascular Cardiovascular: regular rate and rhythym - ASA Status ASA Status: I ANE Anesthesia Plan Anesthesia Plan: general endotracheal anesthesia Specialized Airway: double lumen tube
[2019-01-20] MEDS ORDERED: HYDROmorphONE/DILAUDID 2 MG/ML INJ ONE (08:03)
[2019-01-20] MEDS ORDERED: PROPOFOL 200 MG/20 ML VIAL ONE (08:04)
[2019-01-20] MEDS ORDERED: ONDANSETRON 4 MG/2 ML VIAL ONE (08:05)
[2019-01-20] MEDS ORDERED: METOCLOPRAMIDE 10 MG/2 ML VIAL ONE (08:05)
[2019-01-20] MEDS ORDERED: ROCURONIUM 50 MG/5 ML VIAL ONE (08:05)
[2019-01-20] MEDS ORDERED: ePHEDrine SULFATE 25 MG/5 ML SYR ONE (08:31)
[2019-01-20] MEDS ORDERED: PHENYLEPHRINE HCL 100 MCG/ML SYR ONE (08:31)
[2019-01-20] MEDS ORDERED: BUPIVACAINE/EPI 0.5% 30 ML SDV ONE (08:31)
--- NOTE | 2019-01-20 09:36 | POSTOPPROG ---
Post Op Note Date of Operation: 01/20/19 Surgeon: Marge Neumann Anesthesiologist: toño Anesthesia: GET(General Endotracheal) Pre-op Diagnosis: L empyema Post-op Diagnosis: same Indication: 58 yo with empyema Procedure: L VATS with decortication and wedge biopsy Findings: multiple adhesions and loculations, clear fluid. Stained lung Inf/Abcess present in the surg proc area at time of surgery?: Yes Depth: Organ Space EBL: Minimal Specimen(s): micro and path per ID
--- NOTE | 2019-01-20 09:41 | POSTANESTH ---
Post Anesthetic Evaluation Cardiovascular Status: Normal, Stable Respiratory Status: Normal, Stable Level of Consciousness/Mental Status: Can Participate in Eval, Alert and Oriented Pain Control: Adequate, Prn Tx Ordered Nausea/Vomiting Control: Adequate, Prn Tx Ordered Complications Possibly Related to Anesthesia: None Noted
[2019-01-20] MEDS ORDERED: HYDROmorphONE/DILAUDID 1 MG/ML INJ ONE (10:04)
[2019-01-20] MEDS: LIDOCAINE 4%/MENTHOL 1% PATCH TD SCH (11:45)
[2019-01-20] MEDS: LISINOPRIL/HCTZ 10/12.5 MG 1 EA TAB PO SCH (11:45)
--- NOTE | 2019-01-20 11:51 | PCMIDPN ---
Assessment/Plan: 1. 58-year-old [place] male with poorly controlled diabetes, admitted with several weeks of feeling poorly with sweats, headaches, and left-sided exudative pleural effusion with minimal lung involvement status post VATS: Talked to microbiology lab (Sandhya) to make sure that all the appropriate tests have been sent, and pleural rind, fluid, as well as lung tissue is sent to pathology. For now, given the fact that this still could be bacterial will restart antibiotics in the form of ceftriaxone 1 g IV daily and metronidazole 500 mg IV q.8 hours pending further microbiologic data. Please see my note from yesterday for additional information. Explained this all in detail to the patient and his family, who expressed understanding. Sincerely appreciate 's assistance. As outlined yesterday, differential diagnosis includes tuberculous pleural effusion, fungal etiology, malignancy, or bacteria, such as a fastidious anaerobe. Does not have risk factors for a zoonosis, and would not expect and atypical pathogen to present this way, such as Legionella. Clinical presentation is not consistent with a small-vessel vasculitis, such as GPA. Subjective: Status post VATS. Multiple studies are pending. Pleural fluid just starting to be analyzed. Minimal cough. Pain when he takes a deep breath. Objective: No antibiotics (previously received 5 days of antibiotics with vancomycin, then ceftriaxone and azithromycin, then cefepime and doxycycline) Vital Signs T-max 377 Temp Pulse Resp BP Pulse Ox 37.1 C 92 15 137/77 H 90 L 01/20/19 10:47 01/20/19 10:47 01/20/19 10:47 01/20/19 10:47 01/20/19 10:47 Microbiology 01/20/19 09:02 Gram Stain - Final Lung - Tissue 01/20/19 09:06 Gram Stain - Final Pleural Fluid - Aspirate 01/17/19 09:36 - Final Sputum, Induced/Suctioned Sputum Culture - Final 01/15/19 16:25 Gram Stain - Final Thoracic Fluid - Aspirate Laboratory Results 01/18/19 04:22 01/18/19 04:22 01/19/19 01/20/19 01/21/19 05:59 05:59 05:59 Intake Total 1100 Output Total 95 Balance 1005 ESR 108 MM/HR (0-20) H 01/17/19 05:13 C-Reactive Protein 235.9 mg/L (<10.0) H 01/17/19 05:13 No new microbiologic data at this point in time. - Physical Exam General Appearance: alert, no apparent distress EENT: pharynx normal, No thrush Respiratory: other (Chest tube left chest) Cardiac/Chest: systolic murmur ICD10 Worksheet Patient Problems: Problems Problem Status Onset Pneumonia Acute
[2019-01-20] MEDS: ACETAMINOPHEN 325 MG TAB PO PRN (12:15)
--- NOTE | 2019-01-20 15:40 | SOAPPROG ---
SOAP Progress Note Assessment/Plan: Assessment: POD # 0 s.p L VATS decortication and wedge biopsy for diagnosis Cultures and path pending No Pneumo on CXR Will put to water seal Pain controlled Ambulate and IS Plan: 01/20/19 15:39 Objective: Vital Signs Temp Pulse Resp BP Pulse Ox 36.6 C 79 24 H 133/77 H 95 01/20/19 13:54 01/20/19 13:54 01/20/19 13:54 01/20/19 13:54 01/20/19 13:54 Microbiology 01/20/19 09:02 Gram Stain - Final Other - Tissue 01/20/19 09:02 Gram Stain - Final Lung - Tissue 01/20/19 09:06 Gram Stain - Final Pleural Fluid - Aspirate 01/17/19 09:36 - Final Sputum, Induced/Suctioned Sputum Culture - Final 01/15/19 16:25 Gram Stain - Final Thoracic Fluid - Aspirate Laboratory Results 01/18/19 04:22 01/18/19 04:22 01/19/19 01/20/19 01/21/19 05:59 05:59 05:59 Intake Total 1100 Output Total 95 Balance 1005 PT 15.7 SEC (12.0-15.0) H 01/15/19 14:05 INR 1.31 (0.83-1.16) H 01/15/19 14:05 ICD10 Worksheet Patient Problems: Problems Problem Status Onset Pneumonia Acute
--- NOTE | 2019-01-20 17:17 | HOSPPROG ---
Hospitalist Progress Note Assessment/Plan: * Empyema - previous thoracentesis with pH 7.0 -reaccumulating fluid, persistent fever, now loculated -surgery consulted - now s/p VATS -cultures and pleural biopsy arranged by ID -TB still in differential but off isolation due to sputum negative * Sepsis -still with persistent fever -back on antibiotics - Ceftriaxone, Flagyl * Acute respiratory failure -previous resp rate 45 with 10L O2 requirement -improved * DM II - uncontrolled - last HgA1c 13 -Lantus * HTN -restart home meds * ESR 108 -suggests more prolonged disease process than just parapneumonic effusion ( ie TB) Subjective: no new complaints. Objective: Vital Signs Temp Pulse Resp BP Pulse Ox 36.6 C 79 24 H 133/77 H 95 01/20/19 13:54 01/20/19 13:54 01/20/19 13:54 01/20/19 13:54 01/20/19 13:54 Microbiology 01/20/19 09:02 Gram Stain - Final Other - Tissue 01/20/19 09:02 Gram Stain - Final Lung - Tissue 01/20/19 09:06 Gram Stain - Final Pleural Fluid - Aspirate 01/17/19 09:36 - Final Sputum, Induced/Suctioned Sputum Culture - Final Laboratory Results 01/18/19 04:22 01/18/19 04:22 01/19/19 01/20/19 01/21/19 05:59 05:59 05:59 Intake Total 1100 Output Total 95 Balance 1005 PT 15.7 SEC (12.0-15.0) H 01/15/19 14:05 INR 1.31 (0.83-1.16) H 01/15/19 14:05 - Physical Exam Constitutional: no apparent distress, appears nourished, not in pain Cardiovascular: regular rate and rhythym, no murmur, rub, or gallop Respiratory: no respiratory distress, no rales or rhonchi, clear to auscultation Gastrointestinal: normoactive bowel sounds, soft, non-tender abdomen, no palpable masses Skin: no rashes or abrasions, no fluctuance, no induration Neurologic: AAOx3, sensation intact bilaterally Psychiatric: interacting appropriately, not anxious, not encephalopathic, thought process linear ICD10 Worksheet Patient Problems: Problems Problem Status Onset Pneumonia Acute
--- NOTE | 2019-01-20 19:21 | GOP ---
[f rep st] OPERATIVE REPORT DATE OF OPERATION: 01/20/2019 SURGEON: Marge Neumann MD ANESTHESIA: General. ANESTHESIOLOGIST: Vasu Chen DO PREOPERATIVE DIAGNOSIS: Left empyema. POSTOPERATIVE DIAGNOSIS: Left empyema. PROCEDURE PERFORMED: Left video-assisted thoracoscopic surgery with decortication and wedge biopsy. FINDINGS: Multiple adhesions, loculations with serosanguineous fluid. His lung was stained SPECIMENS: Multiple specimens for microbiology and pathology. ESTIMATED BLOOD LOSS: 5 cc. INDICATIONS: The patient is a 58-year-old who presented with chest pain and imaging was suggestive of pneumonia and possible empyema. As the fluid collection was loculated, VATS was indicated. This will also assist with diagnosis. DESCRIPTION OF PROCEDURE: The patient was brought into the operating room, placed supine on the table, and general anesthesia was administered. He was placed in the lateral decubitus position, with the left side up. All bony prominences padded. He was prepped and draped in the usual sterile fashion. Single lung ventilation initiated. I infiltrated all sites with 0.5% Marcaine prior to making incisions. I made an incision at approximately the 5th rib space in the anterior axillary line. I placed the 1st trocar and immediately encountered lots of adhesions. I gently swept some of these free with the camera and then I could identify another place where I could place a second trocar at the 8th rib space in the anterior axillary line. Again, I performed some adhesiolysis before I could place a 3rd posterior trocar. I continued gentle dissection with a Kittner and the suction consumer relations specialist. I suctioned the fluid and sent this for cell studies, microbiology, as well as cytology. I then was able to dissect some pleural rind and also submitted this to microbiology. Finally, I was able to dissect free a small portion of the left lower portion of his lung. I elevated this and used an Endo NILESH 45 blue load to obtain a wedge biopsy. Hemostasis achieved at the staple line. Specimen divided for micro and path. I tested for an air leak and none was noted. I then placed a 28 chest tube in the trocar site and again watched the lung re- expand. This was sutured into place with 0 Vicryl. The fascia at the larger incision was closed with 0 Vicryl, skin closed with 4-0 Monocryl. Mastisol, Steri-Strips, and sterile dressing applied. He was placed back into the supine position, extubated, transferred to PACU in stable condition. /[id number]/MODL MTDD
[2019-01-20] MEDS: IBUPROFEN 600 MG TAB PO PRN (20:51)
[2019-01-20] MEDS: ATORVASTATIN CALCIUM 10 MG TAB PO SCH (20:52)
[2019-01-20] MEDS: PATCH REMOVAL 1 EA PATCH TD SCH (21:02)
[2019-01-21] MEDS: HYDROCODONE/APAP 5/325 TAB PO PRN (04:15)
[2019-01-21 05:18] LABS: PLATELET COUNT 433 10^3/uL (150-400)
[2019-01-21] MEDS: BENZONATATE 100 MG CAP PO PRN ×2 (07:29→17:25)
[2019-01-21] MEDS: IBUPROFEN 600 MG TAB PO PRN (07:29)
[2019-01-21] MEDS: INSULIN LISPRO 100 UNIT/ML SC SCH ×4 (07:37→23:17)
--- NOTE | 2019-01-21 09:15 | SOAPPROG ---
SOAP Progress Note Assessment/Plan: Assessment/Plan: 58yo M POD#1 s/p L VATS decortication and wedge biopsy for diagnosis Cultures and path pending Chest tube to water seal - low output. Will likely pull chest tube this afternoon. CXR 4 hours post-pull Pain controlled Ambulation and IS Appreciate hospitalists and ID S: feeling well this am. Pain is controlled. Pain in his L chest wall with deep breathing and coughing. Ambulating well O: standing, walking around room, no acute distress CTAB, no increased WOB RRR L chest tube dressing intact Serosanguinous fluid in pleur-evac. No air leak Objective: Vital Signs Temp Pulse Resp BP Pulse Ox 37.0 C 80 20 110/76 96 01/21/19 07:26 01/21/19 07:26 01/21/19 07:26 01/21/19 07:26 01/21/19 07:26 Microbiology 01/20/19 09:06 Mycobacterial Smear (DELMIS) - Final Pleural Fluid - Aspirate 01/20/19 09:02 Mycobacterial Smear (DELMIS) - Final Lung - Tissue 01/20/19 09:02 Mycobacterial Smear (DELMIS) - Final Lung - Tissue 01/20/19 09:02 Gram Stain - Final Other - Tissue 01/20/19 09:02 Gram Stain - Final Lung - Tissue 01/20/19 09:06 Gram Stain - Final Pleural Fluid - Aspirate 01/17/19 09:36 - Final Sputum, Induced/Suctioned Sputum Culture - Final Laboratory Results 01/21/19 04:36 01/21/19 04:36 01/20/19 01/21/19 01/22/19 05:59 05:59 05:59 Intake Total 1450 Output Total 270 Balance 1180 PT 15.7 SEC (12.0-15.0) H 01/15/19 14:05 INR 1.31 (0.83-1.16) H 01/15/19 14:05 ICD10 Worksheet Patient Problems: Problems Problem Status Onset Pneumonia Acute
[2019-01-21] MEDS: LIDOCAINE 4%/MENTHOL 1% PATCH TD SCH (09:42)
[2019-01-21] MEDS: LISINOPRIL/HCTZ 10/12.5 MG 1 EA TAB PO SCH (09:42)
[2019-01-21] MEDS: INSULIN GLARGINE 100 UNITS/ML UNIT SC SCH ×2 (09:42→21:12)
[2019-01-21] MEDS: metFORMIN HCL 500 MG TAB PO SCH ×2 (09:43→17:25)
[2019-01-21] MEDS: glipiZIDE 5 MG TAB PO SCH ×2 (09:44→21:12)
[2019-01-21] MEDS: guaiFENesin 600 MG TAB.ER PO SCH ×2 (09:44→21:12)
--- NOTE | 2019-01-21 09:59 | PCMIDPN ---
Assessment/Plan: Assessment: 58-year-old man with community onset pneumonia manifesting with ongoing high temperature spikes without a tachycardic response, acute non blood loss anemia, normal LFTs, normal platelet count, pericardial effusion, parapneumonic pleural effusion, and hyponatremia. Patient is behaving effectively like a fever of unknown origin with no instability with fevers. Once he has recovered from his surgery further diagnostic evaluation will continue as an outpatient with close ID follow-up. If this is in fact pleural TB causing empyema, likelihood of seeing organisms on pathology stain is low due to pauci-bacillary disease. 1. Probable FUO with left-sided empyema; diagnostic testing in process 2. Community onset pneumonia, LLL 3. Hypoxia secondary to #2 requiring supplemental oxygen 4. Acute anemia without blood loss; stable 5. Diabetes mellitus; poorly controlled 5. Hyponatremia; resolved 6. Left-sided parapneumonic effusion; status post left-sided VATS with decortication and wedge biopsy 01/20/2019 7. Pericardial effusion; stable 8. Immunocompromised patient due to poorly controlled diabetes Plan: 1. Continue ceftriaxone and metronidazole for today 2. Will follow pathology results 3. Completion of diagnostic evaluation will be completed as an outpatient if a definitive diagnosis not found prior to chest tube removal and adequate recovery from surgery 4. Reviewed in detail potential side effects of beta-lactam antibiotics to include: allergy, rash, nausea, antibiotic-associated diarrhea, Clostridioides difficile colitis. 5. Infectious disease follow-up within a week of discharge will be arranged Basilio Silva MD Infectious Diseases 01/21/19 10:01 Subjective: Fever pattern continues approximately once per day with diaphoresis and chills that resolved spontaneously. Had a few loose bowel movements after drinking oral contrast for his abdominal CT without is resolved. Has some looser stools with antibiotics that have resumed with resumption of antibiotics. No new arthralgias, myalgias, abdominal pain, or rash. Left-sided chest tube site uncomfortable but tolerable. Objective: Vital Signs Temp Pulse Resp BP Pulse Ox 37.0 C 80 20 110/76 96 01/21/19 07:26 01/21/19 07:26 01/21/19 07:26 01/21/19 07:26 01/21/19 07:26 Microbiology 01/20/19 09:06 Mycobacterial Smear (DELMIS) - Final Pleural Fluid - Aspirate 01/20/19 09:02 Mycobacterial Smear (DELMIS) - Final Lung - Tissue 01/20/19 09:02 Mycobacterial Smear (DELMIS) - Final Lung - Tissue 01/20/19 09:02 Gram Stain - Final Other - Tissue 01/20/19 09:02 Gram Stain - Final Lung - Tissue 01/20/19 09:06 Gram Stain - Final Pleural Fluid - Aspirate 01/17/19 09:36 - Final Sputum, Induced/Suctioned Sputum Culture - Final Laboratory Results 01/21/19 04:36 01/21/19 04:36 01/20/19 01/21/19 01/22/19 05:59 05:59 05:59 Intake Total 1450 Output Total 270 Balance 1180 ESR 108 MM/HR (0-20) H 01/17/19 05:13 C-Reactive Protein 235.9 mg/L (<10.0) H 01/17/19 05:13 Medications Generic Name Dose Route Start Last Admin Trade Name Freq PRN Reason Stop Dose Admin Ceftriaxone Sodium/Dextrose 50 mls @ 100 mls/hr 01/20/19 12:00 01/21/19 09:42 Rocephin 1 Gm (Premix) IV 02/19/19 11:59 50 mls DAILY [facility] Protocol Metronidazole/Sodium Chloride 100 mls @ 100 mls/hr 01/20/19 11:45 01/21/19 05 :16 Flagyl 500 Mg (Premix) IV 02/19/19 11:44 100 mls Q8HRS REJI Protocol Microbiology 01/20/19 09:06 Pleural Fluid - Aspirate Mycobacterial Smear (DELMIS) - Final 01/20/19 09:06 Pleural Fluid - Aspirate Gram Stain - Final 01/20/19 09:02 Other - Tissue Gram Stain - Final 01/20/19 09:02 Lung - Tissue Mycobacterial Smear (DELMIS) - Final 01/20/19 09:02 Lung - Tissue Mycobacterial Smear (DELMIS) - Final 01/20/19 09:02 Lung - Tissue Gram Stain - Final 01/18/19 13:30 Blood Mycobacterial Smear (DELMIS) - Final 01/17/19 09:36 Sputum, Induced/Suctioned - Final 01/17/19 09:36 Sputum, Induced/Suctioned Sputum Culture - Final 01/17/19 08:50 Sputum, Induced/Suctioned Mycobacterial Smear (DELMIS) - Final 01/17/19 08:50 Sputum, Induced/Suctioned Mycobacterium tuberculosis DNA ( PCR - Final Pcr Negative For M. Tb Complex 01/20/19 09:06 Pleural Fluid - Aspirate Fungal Culture - Preliminary 01/20/19 09:02 Other - Tissue Fungal Culture - Preliminary 01/20/19 09:02 Lung - Tissue Fungal Culture - Preliminary Laboratory Tests 01/15/19 01/15/19 01/16/19 18:00 18:00 04:46 WBC 12.83 H Hgb Plt Count Haptoglobin Creatinine Cryptococcus Ag Screen Urine Histoplasma Ag 0.00 HIV (1&2) Ag & Ab Refer Urine Legionella Ag Negative Ur Strep pneumoniae Ag Negative TB Blood Test (T-Spot) 01/17/19 01/17/19 01/17/19 05:15 05:15 10:46 WBC Hgb 9.9 L Plt Count 247 Haptoglobin Creatinine Cryptococcus Ag Screen Urine Histoplasma Ag HIV (1&2) Ag & Ab Refer NEGATIVE Urine Legionella Ag Ur Strep pneumoniae Ag TB Blood Test (T-Spot) Pending 01/18/19 01/18/19 01/18/19 04:22 04:22 04:22 WBC 12.33 H Hgb Plt Count Haptoglobin 693 H Creatinine Cryptococcus Ag Screen Negative Urine Histoplasma Ag HIV (1&2) Ag & Ab Refer Urine Legionella Ag Ur Strep pneumoniae Ag TB Blood Test (T-Spot) 01/21/19 01/21/19 04:36 04:36 WBC 10.84 H Hgb 10.8 L Plt Count 433 H Haptoglobin Creatinine 0.7 Cryptococcus Ag Screen Urine Histoplasma Ag HIV (1&2) Ag & Ab Refer Urine Legionella Ag Ur Strep pneumoniae Ag TB Blood Test (T-Spot) - Physical Exam General Appearance: no apparent distress, non-toxic EENT: No scleral icterus Respiratory: other (Diminished breath sounds on the left), No respiratory distress, No accessory muscle use Neck: supple Cardiac/Chest: No bradycardia, No tachycardia, No diastolic murmur, No systolic murmur Extremities: No inflammation, No swelling, No erythema Abdomen: non-tender, soft, No distended, No guarding Skin: No erythema Neuro/Psych: alert, normal mood/affect, oriented x 3, No confused ICD10 Worksheet Patient Problems: Problems Problem Status Onset Pneumonia Acute
--- NOTE | 2019-01-21 16:20 | ASMTCMCOM ---
CM Note CM Note Notes: Patient has been cleared by PT for home. D/C plan is independent. CM available if d/c needs arise. Date Signed: 01/21/2019 03:56 PM Electronically Signed By:Rica Chapman LCSW
--- NOTE | 2019-01-21 17:29 | HOSPPROG ---
Hospitalist Progress Note Assessment/Plan: * Empyema - previous thoracentesis with pH 7.0 -reaccumulating fluid, persistent fever, now loculated -surgery consulted - now s/p VATS -cultures and pleural biopsy arranged by ID -TB still in differential but off isolation due to sputum negative * Sepsis -still with persistent fever - now improved -back on antibiotics - Ceftriaxone, Flagyl * Acute respiratory failure -previous resp rate 45 with 10L O2 requirement -improved * DM II - uncontrolled - last HgA1c 13 -Lantus * HTN -restart home meds * ESR 108 -suggests more prolonged disease process than just parapneumonic effusion ( ie TB) Subjective: No new complaints. Objective: Vital Signs Temp Pulse Resp BP Pulse Ox 37.1 C 93 20 113/73 94 01/21/19 15:08 01/21/19 15:08 01/21/19 15:08 01/21/19 15:08 01/21/19 15:08 Microbiology 01/15/19 16:25 Gram Stain - Final Thoracic Fluid - Aspirate 01/20/19 09:02 Gram Stain - Final Lung - Tissue 01/20/19 09:02 Gram Stain - Final Other - Tissue 01/20/19 09:06 Gram Stain - Final Pleural Fluid - Aspirate 01/20/19 09:06 Mycobacterial Smear (DELMIS) - Final Pleural Fluid - Aspirate 01/20/19 09:02 Mycobacterial Smear (DELMIS) - Final Lung - Tissue 01/20/19 09:02 Mycobacterial Smear (DELMIS) - Final Lung - Tissue Laboratory Results 01/21/19 04:36 01/21/19 04:36 01/20/19 01/21/19 01/22/19 05:59 05:59 05:59 Intake Total 1450 Output Total 270 Balance 1180 PT 15.7 SEC (12.0-15.0) H 01/15/19 14:05 INR 1.31 (0.83-1.16) H 01/15/19 14:05 - Time Spent With Patient Time Spent with Patient: greater than 35 minutes (discussed and completed disability and FMLA paperwork with son) Time Spent with Patient: Greater than 35 minutes spent on this patients care, greater than 50% of time spent counseling, educating, and coordinating care regarding the above mentioned plan. - Physical Exam Cardiovascular: regular rate and rhythym, no murmur, rub, or gallop Respiratory: no respiratory distress, no rales or rhonchi, clear to auscultation Gastrointestinal: normoactive bowel sounds, soft, non-tender abdomen, no palpable masses Skin: no rashes or abrasions, no fluctuance, no induration Neurologic: AAOx3, sensation intact bilaterally Psychiatric: interacting appropriately, not anxious, not encephalopathic, thought process linear ICD10 Worksheet Patient Problems: Problems Problem Status Onset Pneumonia Acute
[2019-01-21] MEDS: ATORVASTATIN CALCIUM 10 MG TAB PO SCH (21:12)
[2019-01-21] MEDS: ACETAMINOPHEN 325 MG TAB PO PRN (22:58)
[2019-01-21] MEDS: PATCH REMOVAL 1 EA PATCH TD SCH (23:17)
[2019-01-22] MEDS: INSULIN LISPRO 100 UNIT/ML SC SCH ×4 (08:39→20:38)
[2019-01-22] MEDS: INSULIN GLARGINE 100 UNITS/ML UNIT SC SCH ×2 (08:47→20:38)
[2019-01-22] MEDS: LISINOPRIL/HCTZ 10/12.5 MG 1 EA TAB PO SCH (08:50)
[2019-01-22] MEDS: guaiFENesin 600 MG TAB.ER PO SCH (08:51)
[2019-01-22] MEDS: glipiZIDE 5 MG TAB PO SCH ×2 (08:51→20:37)
[2019-01-22] MEDS: LIDOCAINE 4%/MENTHOL 1% PATCH TD SCH (08:51)
[2019-01-22] MEDS: metFORMIN HCL 500 MG TAB PO SCH ×2 (08:51→18:30)
--- NOTE | 2019-01-22 11:01 | PCMIDPN ---
Assessment/Plan: 1. 58-year-old [place] male with poorly controlled diabetes, admitted with several weeks of feeling poorly with sweats, headaches, and left-sided exudative pleural effusion with minimal lung involvement status post VATS: Spent quite some time down in pathology reviewing slides with Dr. Prince Vilchis and Abran Patterson. There is no evidence of malignancy, and pleural rind showed necrotic debris with no necrotizing granulomas, per se, and specimen was also packed with neutrophils. Dr. Vilchis, Dr. Patterson and I decided that we should send this pleural rind to [facility] for multiplex PCR. , and Bradley from pathology will make this happen. Asked him to please put this in [employer] so it could be visible. Regarding antibiotic plan moving forward, will treat with Augmentin 875 p. O. Twice daily, (stop date to be determined), as patient could still have a bacterial process with a fastidious organism that is difficult to grow. Will discontinue ceftriaxone and metronidazole. He will follow-up in our clinic with January 30 at 10:30 a.m.. Suspect patient can go home tomorrow, which is the family's preference. Today, will have nutrition see him, and have him walk physical therapy. Will also need to set up home oxygen. Talked about antibiotic associated diarrhea, and C difficile colitis today. All questions were answered. Over 1 hr was spent with this patient today, talking with the family, reviewing pathology slides, and coordinating care. Subjective: Spent quite some time with the patient today, talking about plan, and reviewing pathology slides/microbiology. Patient still has some discomfort in his left chest, although his fever curve is coming down. Also is complaining of a bitter taste in his mouth, likely associated with metronidazole. Objective: Vital Signs Ceftriaxone 1 g IV daily day 3 Metronidazole 500 mg IV q.8 hours day 3 T-max 37.9 degrees Temp Pulse Resp BP Pulse Ox 37.0 C 93 16 124/75 H 96 01/22/19 08:27 01/22/19 08:27 01/22/19 08:27 01/22/19 08:50 01/22/19 08:27 Microbiology 01/15/19 16:25 Gram Stain - Final Thoracic Fluid - Aspirate 01/20/19 09:02 Gram Stain - Final Lung - Tissue 01/20/19 09:02 Gram Stain - Final Other - Tissue 01/20/19 09:06 Gram Stain - Final Pleural Fluid - Aspirate Laboratory Results 01/21/19 04:36 01/21/19 04:36 01/21/19 01/22/19 01/23/19 05:59 05:59 05:59 Intake Total 1450 Output Total 270 Balance 1180 ESR 108 MM/HR (0-20) H 01/17/19 05:13 C-Reactive Protein 235.9 mg/L (<10.0) H 01/17/19 05:13 January 18 AFB blood culture pending January 20: Lung tissue: No polys or organisms, culture pending, fungal culture pending, wedge a biopsy of the lung AFB stain negative, culture pending January 20 pleural rind: Gram stain no polys and organisms, culture pending fungal culture pending, AFB smear negative, culture pending: January 20 pleural fluid 4+ polys no organisms culture pending AFB stain negative, culture pending, fungal culture pending Pathology pleural fluid no malignant cells Laboratory Tests 01/15/19 01/17/19 01/17/19 18:00 05:15 10:46 Cryptococcus Ag Screen Urine Histoplasma Ag 0.00 HIV (1&2) Ag & Ab Refer NEGATIVE TB Blood Test (T-Spot) NEGATIVE 01/18/19 04:22 Cryptococcus Ag Screen Negative Urine Histoplasma Ag HIV (1&2) Ag & Ab Refer TB Blood Test (T-Spot) - Physical Exam General Appearance: alert, no apparent distress EENT: pharynx normal, No thrush Respiratory: other (Diminished breath sounds left base. VATS incision looks clean. Previous chest tube site is dressed and I did not take this down.) Cardiac/Chest: regular rate, rhythm, No systolic murmur Extremities: No pedal edema Skin: No rash Neuro/Psych: oriented x 3 ICD10 Worksheet Patient Problems: Problems Problem Status Onset Pneumonia Acute
[2019-01-22] MEDS: PATCH REMOVAL 1 EA PATCH TD SCH (14:38)
[2019-01-22] MEDS: IBUPROFEN 600 MG TAB PO PRN (14:44)
[2019-01-22] MEDS ORDERED: guaiFENesin/CODEINE PHOS 10 ML UDCUP PO PRN (15:21)
--- NOTE | 2019-01-22 15:47 | SOAPPROG ---
SOAP Progress Note Assessment/Plan: Assessment: POD # 2 s.p L VATS decortication and wedge biopsy for diagnosis Cultures and path negative for malignancy or organisms. Will be sent out to for PCR per ID No Pneumo on CXR Pain controlled Discussed importance of ambulation and incentive spirometer with patient. Provided extensive teaching on how IS will help re-expand lung, as well as how to use IS, and had patient demonstrate correct usage. Tmax 37.9 last night, received APAP x 1 dose, temp has been steadily trending downward since. Is currently afebrile at the time of this note. Plan today is encourage ambulation, aggressive incentive spirometry. Plan d/c home tomorrow if afebrile and successfully weaned off O2. Subjective: Patient reports feeling more pain today than yesterday. (Of note, patient switched from narcotics yesterday to NSAIDs today, with first dose today at 14:40) General: Very pleasant, well-nourished gentleman in [facility], less diaphoretic than when last seen by me. HENT: Atraumatic, normocephalic, no scleral icterus, pupils round and equal. Respiratory: Significantly diminished air movement of Left lung superior and inferior mcclelland. Occasional crackles bilaterally. Cardiovascular: RRR no M/R/G appreciated Skin: dressing at site of previous chest tube as well as two lap sites dry without drainage, redness or inflammation of surrounding tissues. psych: mood, affect normal. Very smiley Plan: 01/20/19 15:39 01/22/19 17:18 01/22/19 17:23 01/22/19 17:27 01/23/19 07:35 Objective: Vital Signs Temp Pulse Resp BP Pulse Ox 36.8 C 93 16 125/69 H 92 01/22/19 12:05 01/22/19 12:05 01/22/19 12:05 01/22/19 12:05 01/22/19 12:05 Microbiology 01/15/19 16:25 Gram Stain - Final Thoracic Fluid - Aspirate Anaerobic Culture - Final 01/20/19 09:02 Mycobacterial Smear (DELMIS) - Final Lung - Tissue 01/20/19 09:02 Mycobacterial Smear (DELMIS) - Final Lung - Tissue 01/20/19 09:06 Mycobacterial Smear (DELMIS) - Final Pleural Fluid - Aspirate 01/18/19 13:30 Mycobacterial Smear (DELMIS) - Final Blood 01/17/19 08:50 Mycobacterial Smear (DELMIS) - Final Sputum, Induced/Suctioned Mycobacterium tuberculosis DNA (PCR - Final Pcr Negative For M. Tb Complex 01/15/19 16:25 Mycobacterial Smear (DELMIS) - Final Thoracic Fluid - Aspirate 01/20/19 09:02 Gram Stain - Final Lung - Tissue 01/20/19 09:02 Gram Stain - Final Other - Tissue 01/20/19 09:06 Gram Stain - Final Pleural Fluid - Aspirate Laboratory Results 01/21/19 04:36 01/21/19 04:36 01/21/19 01/22/19 01/23/19 05:59 05:59 05:59 Intake Total 1450 Output Total 270 Balance 1180 PT 15.7 SEC (12.0-15.0) H 01/15/19 14:05 INR 1.31 (0.83-1.16) H 01/15/19 14:05 ICD10 Worksheet Patient Problems: Problems Problem Status Onset Pneumonia Acute
[2019-01-22] MEDS: BENZONATATE 100 MG CAP PO PRN (18:30)
--- NOTE | 2019-01-22 18:56 | HOSPPROG ---
Hospitalist Progress Note Assessment/Plan: * Empyema - thoracentesis with pH 7.0 -reaccumulated fluid, persistent fever, loculated -surgery consulted - s/p VATS -cultures and pleural biopsy pending - send out PCR as prelim here unrevealing -TB still in differential but off isolation due to sputum negative -per ID change to PO Augmentin and okay for DC home in am -f/u ID as outpatient regarding final pleural biopsy results * Sepsis -persistent fever - now improved -Augmentin as above * Acute respiratory failure -previous resp rate 45 with 10L O2 requirement -improved -will likely need home O2 * DM II - uncontrolled - last HgA1c 13 -Lantus * HTN -restart home meds * ESR 108 -suggests more prolonged disease process than just parapneumonic effusion ( ie TB) Subjective: Feel much better except for cough Objective: Vital Signs Temp Pulse Resp BP Pulse Ox 36.7 C 93 20 120/67 95 01/22/19 15:44 01/22/19 15:44 01/22/19 15:44 01/22/19 15:44 01/22/19 15:44 Microbiology 01/20/19 09:02 Gram Stain - Final Lung - Tissue 01/20/19 09:02 Gram Stain - Final Other - Tissue 01/20/19 09:06 Gram Stain - Final Pleural Fluid - Aspirate 01/15/19 16:25 Gram Stain - Final Thoracic Fluid - Aspirate Anaerobic Culture - Final 01/20/19 09:02 Mycobacterial Smear (DELMIS) - Final Lung - Tissue 01/20/19 09:02 Mycobacterial Smear (DELMIS) - Final Lung - Tissue 01/20/19 09:06 Mycobacterial Smear (DELMIS) - Final Pleural Fluid - Aspirate 01/18/19 13:30 Mycobacterial Smear (DELMIS) - Final Blood 01/17/19 08:50 Mycobacterial Smear (DELMIS) - Final Sputum, Induced/Suctioned Mycobacterium tuberculosis DNA (PCR - Final Pcr Negative For M. Tb Complex 01/15/19 16:25 Mycobacterial Smear (DELMIS) - Final Thoracic Fluid - Aspirate Laboratory Results 01/21/19 04:36 01/21/19 04:36 01/21/19 01/22/19 01/23/19 05:59 05:59 05:59 Intake Total 1450 Output Total 270 Balance 1180 PT 15.7 SEC (12.0-15.0) H 01/15/19 14:05 INR 1.31 (0.83-1.16) H 01/15/19 14:05 d/w Dr. Davidson regarding discharge plan path report reviewed - negative for malignancy CXR - negative for recurrent PTX - Physical Exam Constitutional: no apparent distress, appears nourished, not in pain Cardiovascular: regular rate and rhythym, no murmur, rub, or gallop Respiratory: no respiratory distress, no rales or rhonchi, clear to auscultation Gastrointestinal: normoactive bowel sounds, soft, non-tender abdomen, no palpable masses Skin: no rashes or abrasions, no fluctuance, no induration Neurologic: AAOx3, sensation intact bilaterally Psychiatric: interacting appropriately, not anxious, not encephalopathic, thought process linear ICD10 Worksheet Patient Problems: Problems Problem Status Onset Pneumonia Acute
[2019-01-22] MEDS: ATORVASTATIN CALCIUM 10 MG TAB PO SCH (20:37)
[2019-01-22] MEDS: AMOXICILLIN/CLAVULANATE POT 875/125 MG TAB PO SCH (20:38)
[2019-01-23] MEDS: BENZONATATE 100 MG CAP PO PRN (02:10)
[2019-01-23] MEDS: AMOXICILLIN/CLAVULANATE POT 875/125 MG TAB PO SCH (08:31)
[2019-01-23] MEDS: metFORMIN HCL 500 MG TAB PO SCH (08:32)
[2019-01-23] MEDS: LISINOPRIL/HCTZ 10/12.5 MG 1 EA TAB PO SCH (08:32)
[2019-01-23] MEDS: glipiZIDE 5 MG TAB PO SCH (08:32)
[2019-01-23] MEDS: LIDOCAINE 4%/MENTHOL 1% PATCH TD SCH (08:33)
[2019-01-23] MEDS: INSULIN GLARGINE 100 UNITS/ML UNIT SC SCH (08:33)
[2019-01-23] MEDS: INSULIN LISPRO 100 UNIT/ML SC SCH ×2 (08:45→13:18)
--- NOTE | 2019-01-23 10:57 | HOSPPROG ---
Hospitalist Progress Note Assessment/Plan: 58 M w empyema ? pneumothorax: repeat PA and lateral cxr does not exonerate ptx CT now patient stable clinically * Empyema - thoracentesis with pH 7.0 -reaccumulated fluid, persistent fever, loculated -surgery consulted - s/p VATS -cultures and pleural biopsy pending - send out PCR as prelim here unrevealing -TB still in differential but off isolation due to sputum negative -per ID change to PO Augmentin and okay for DC home in am -f/u ID as outpatient regarding final pleural biopsy results * Sepsis -persistent fever - now improved -Augmentin as above * Acute respiratory failure -previous resp rate 45 with 10L O2 requirement -improved -will likely need home O2 * DM II - uncontrolled - last HgA1c 13 -Lantus * HTN -restart home meds * ESR 108 -suggests more prolonged disease process than just parapneumonic effusion ( ie TB) home today if no R sided pneumothorax > 30 minutes spent on dc Subjective: case d/w dr de oliveira. cxr's s/o R sided pneumothorax (interp by me) Objective: Vital Signs Temp Pulse Resp BP Pulse Ox 36.8 C 85 16 120/80 92 01/23/19 08:27 01/23/19 08:27 01/23/19 08:27 01/23/19 08:32 01/23/19 08:27 Microbiology 01/20/19 09:02 Gram Stain - Final Lung - Tissue 01/20/19 09:06 Gram Stain - Final Pleural Fluid - Aspirate 01/20/19 09:02 Gram Stain - Final Other - Tissue 01/17/19 08:50 Mycobacterial Smear (DELMIS) - Final Sputum, Induced/Suctioned Mycobacterium tuberculosis DNA (PCR - Final Pcr Negative For M. Tb Complex 01/15/19 16:25 Gram Stain - Final Thoracic Fluid - Aspirate Anaerobic Culture - Final 01/20/19 09:02 Mycobacterial Smear (DELMIS) - Final Lung - Tissue 01/20/19 09:02 Mycobacterial Smear (DELMIS) - Final Lung - Tissue 01/20/19 09:06 Mycobacterial Smear (DELMIS) - Final Pleural Fluid - Aspirate 01/18/19 13:30 Mycobacterial Smear (DELMIS) - Final Blood 01/15/19 16:25 Mycobacterial Smear (DELMIS) - Final Thoracic Fluid - Aspirate Laboratory Results 01/21/19 04:36 01/21/19 04:36 PT 15.7 SEC (12.0-15.0) H 01/15/19 14:05 INR 1.31 (0.83-1.16) H 01/15/19 14:05 - Physical Exam Constitutional: no apparent distress, appears nourished Eyes: PERRL, anicteric sclera Ears, Nose, Mouth, Throat: moist mucous membranes, hearing normal Cardiovascular: regular rate and rhythym, no murmur, rub, or gallop Respiratory: no respiratory distress, no rales or rhonchi Gastrointestinal: normoactive bowel sounds, soft, non-tender abdomen Genitourinary: no bladder fullness, No field in urethra Skin: warm, normal color Musculoskeletal: full muscle strength Neurologic: AAOx3 ICD10 Worksheet Patient Problems: Problems Problem Status Onset Pneumonia Acute
[2019-01-23 11:10] VITALS: BP 110/64
--- NOTE | 2019-01-23 13:10 | GDS ---
[f rep st] DISCHARGE SUMMARY DISCHARGE DIAGNOSES: 1. Empyema. 2. History of diabetes with poor control, A1c of 13. 3. Hyperlipidemia. 4. Hypertension. HOSPITAL COURSE: He presented with productive cough, brown sputum, fever, chills, sweats. Initial e valuation demonstrated no pulmonary thromboembolic disease, small left-sided effusion. The following day he had thoracentesis with a pH of 7.0, and elevated white count. Micro grew out nothing and ult imately went to VATS with pleural biopsy. Initial micro is negative. The patient was seen by Infect ious Disease who treated with cefepime and doxycycline. The patient completed that course of antibiotics and currently on Augmentin. He underwent VATS. Loni st tube removed. On room air on the day of discharge. There was some discussion of pneumothorax and chest x-rays, but this was exoneration by CT. There was some concern of tuberculosis given that he is Nep[place]. He had sputum that was negative f or mycobacterium tuberculosis on PCR. There was a bunch of lung tissue and other micro that is pendi ng. He has outpatient followup with Infectious Disease and Dr. Neumann who performed the VATS. NEW DISCHARGE MEDICATIONS: Augmentin, I gave him a month. FOLLOWUP: He has outpatient followup with Infectious Disease. /[id number]/MODL
--- NOTE | 2019-01-23 13:11 | ASMTLACE ---
LACE Length of stay for Answers: 7-13 days current admission Acuity / Level of Answers: Yes Care: Did the patient have an inpatient admission? Comorbidities - select Answers: Diabetes (uncontrolled or all that apply controlled) Other Notes: HTN # of Emergency department Answers: 1-2 visits in the last 6 months Score: 11 Date Signed: 01/23/2019 01:10 PM Electronically Signed By:Alisa Lema
--- NOTE | 2019-01-23 13:16 | ASMTCMCOM ---
CM Note CM Note Notes: Chart reviewed for discharge. Pt will d/c independent CM available if needed. PLAN: Discharge to home Independently Date Signed: 01/23/2019 01:15 PM Electronically Signed By:Alisa Lema
--- NOTE | 2019-01-28 15:25 | PQFORM ---
PHYSICIAN QUERY FORM Needs Your Response This query form is being sent to you to assure this patient record is coded properly. Please respond to the question below: MIRROR SILVERER QUESTION: Dr Soares Sepsis was documented throughout this patients chart but was not mentioned in the Discharge Summary. Did this patient have Sepsis ? _X_ Yes __ No __ Other (Please Specify ___) __ Unable to be determined Thank You Myla SEGURA Tv Production Assistant INSTRUCTIONS FOR RESPONSE: Answer question by clicking on the "Edit Document" button. Move cursor to area below the stars. When complete, hit "Save." Click on the "Sign" button, then click "Sign" again. Type in your PIN and hit "Enter." MTDD
--- NOTE | 2019-01-28 15:28 | PQFORM ---
PHYSICIAN QUERY FORM Needs Your Response This query form is being sent to you to assure this patient record is coded properly. Please respond to the question below: SHIPPING SPECIALIST QUESTION: Dr Soares Acute Hypoxic Respiratory Failure was documented throughout this patients record but was not mentioned in the Discharge Summary Did this patient have AHRF ? _X_ Yes __ No __ Other (Please Specify ) __ Unable to determine Thank You Myla SEGURA Head Sugar Reprocess Operator INSTRUCTIONS FOR RESPONSE: Answer question by clicking on the "Edit Document" button. Move cursor to area below the stars. When complete, hit "Save." Click on the "Sign" button, then click "Sign" again. Type in your PIN and hit "Enter." MTDD
--- NOTE | 2019-01-28 15:32 | PQFORM ---
PHYSICIAN QUERY FORM Needs Your Response This query form is being sent to you to assure this patient record is coded properly. Please respond to the question below: TANK BOTTOM ASSEMBLER QUESTION: Dr Soares Chart documentation reflects Diabetes Out of Control but Discharge states Diabetes with Poor Control Please clarify whether patient has: X__ Diabetes Uncontrolled __ Diabetes with poor control __ Other (please specify ) __ Unable to determine Thank You Myla SEGURA Mill Labor Supervisor INSTRUCTIONS FOR RESPONSE: Answer question by clicking on the "Edit Document" button. Move cursor to area below the stars. When complete, hit "Save." Click on the "Sign" button, then click "Sign" again. Type in your PIN and hit "Enter." MTDD
--- NOTE | 2019-01-28 15:36 | PQFORM ---
PHYSICIAN QUERY FORM Needs Your Response This query form is being sent to you to assure this patient record is coded properly. Please respond to the question below: DIRECTOR OF PRODUCT DEVELOPMENT QUESTION: Dr Soares Chart documentation indicates Acute Blood Loss Anemia but this diagnosis was not mentioned in the Discharge Summary Did this patient have ABLA? X__ Yes __ No __ Other Please Specify ) __ Unable to determine Thank You Myla SEGURA Type Mapper INSTRUCTIONS FOR RESPONSE: Answer question by clicking on the "Edit Document" button. Move cursor to area below the stars. When complete, hit "Save." Click on the "Sign" button, then click "Sign" again. Type in your PIN and hit "Enter." MTDD
== END 2019-01-23 14:33 | disposition home or self-care (01) | DRG 853 ==
LOC: F3E 10:26
PROVIDERS: ADMIT Internal Medicine; ATTEND Internal Medicine
PROC: 0W9B3ZX Drainage of Left Pleural Cavity, Percutaneous Approach, Diagnostic (ICD-10-PCS; 2019-01-15)
PROC: 0BBJ4ZX Excision of Left Lower Lung Lobe, Percutaneous Endoscopic Approach, Diagnostic (ICD-10-PCS; principal; 2019-01-20 08:00)
PROC: 0BN Respiratory System, Release (ICD-10-PCS; principal; 2019-01-20 08:00)
DX: A41.9 Sepsis, unspecified organism (principal); J86.9 Pyothorax without fistula; J96.01 Acute respiratory failure with hypoxia; E11.65 Type 2 diabetes mellitus with hyperglycemia; E87.1 Hypo-osmolality and hyponatremia; E87.6 Hypokalemia; D62 Acute posthemorrhagic anemia; I10 Essential (primary) hypertension; E78.5 Hyperlipidemia, unspecified; Z79.4 Long term (current) use of insulin
CPT/HCPCS: 83010-90; 96365; 97116-GP; 97161-GP; 97530-GP; G0378; J0456; J0692; J0696; J1170; J1650; J1815; J1885; J2270; J2370; J2405; J2704; J2765; J3370; Q9967

== ENCOUNTER → 2019-01-30 | Outpatient (CLI) | payer OTHER | LOC: FIMAGING 11:31 | PROVIDERS: ATTEND Internal Medicine Infectious Disease | DX: J86.9 Pyothorax without fistula (principal) ==

== ENCOUNTER → 2019-02-12 | Outpatient (CLI) | payer OTHER | LOC: FIMAGING 09:08 | PROVIDERS: ATTEND Internal Medicine Infectious Disease | DX: R91.8 Other nonspecific abnormal finding of lung field (principal) ==

== ENCOUNTER → 2019-03-20 | Outpatient (CLI) | payer OTHER | LOC: FIMAGING 14:59 ==